=== PATIENT | male | born 1945 | race African-American/Black ===

== ENCOUNTER 2018-03-04 13:24 | Inpatient (IN) | payer MEDICARE, MEDICAID ==
--- NOTE | 2018-03-04 14:20 | ED Physician Chart ---
ED Chief Complaint/HPI - Patient Information Date Seen:: 03/04/18 Time Seen:: 14:00 Chief Complaint:: abdominal pain History of Present Illness:: Patient's had intermittent abdominal pain for 2 weeks. The last 2 weeks he has vomited about once a day and also had diarrhea about once a day. Patient's had bilateral leg swelling for the last 2 weeks. 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 He is legally blind. Allergies:: Allergies Allergy/AdvReac Type Severity Reaction Status Date / Time No Known Allergies Allergy Verified 03/04/18 14:01 Historian:: Family Member Review:: Nurse's Note Reviewed ED Review of Systems - Review of Systems General/Constitutional: No fever, No chills Skin: No skin lesions Head: No headache Eyes: No loss of vision ENT: No earache Neck: No neck pain Cardio Vascular: No chest pain, No palpitations Pulmonary: No SOB, No cough, No sputum GI: Vomiting, Diarrhea G/U: No dysuria Musculoskeletal: No bone or joint pain, No back pain, No muscle pain Endocrine: No polyuria, No polydipsia Psychiatric: No prior psych history Hematopoietic: No bruising Allergic/Immuno: No urticaria Neurological: No syncope ED Past Medical History - Past Medical History Past Medical History: HTN, DM, CHF, Other (see history of present illness also) Family History: Diabetes Melitus, HTN Social History: Non Smoker, Other (quit smoking 7 or 8 years ago; currently living in a motel) Surgical History: CABG, Hernia, other (three-vessel coronary artery bypass graft surgery; bowel obstruction; ventral hernia) Psychiatricy History: None Medication: Reviewed Family Medical History - Family Member Mother Ethnicity: Non- Living Status: Hx Family Hypertension: Yes Hx Family Diabetes: Yes ED Physical Exam - Physical Examination General/Constitutional: Awake, Well-developed, well-nourished, Alert, No distress Head: Atraumatic Eyes: Lids, conjuctiva normal Other Eyes comments:: Right eye deviates laterally Skin: Nl inspection, No rash ENMT: External ears, nose nl, Lips, teeth, gums nl Neck: No nuchal rigidity Respiratory: Nl effort/Exclusion, Clear to Auscultation, No Wheeze/Rhonchi/Rales Cardio Vascular: RRR Other Cardio Vascular comments:: Regular rhythm with a 4/6 systolic murmur heard equally along left sternal border and second right intercostal space GI: No tenderness/rebounding/guarding, No organomegaly, No hernia, Normal BS's, Nondistended, No mass/bruits : No CVA tenderness Extremities: Normal digits & nails Other Extremities comments:: 3.5 out of 4 pretibial pitting edema Neuro/Psych: Alert/oriented, No focal deficits ED Labs/Radiology/EKG Results - Lab Results Results: Laboratory Results - last 24 hr 03/04/18 03/04/18 03/04/18 14:00 14:00 14:00 WBC 5.6 RBC 3.95 Hgb 11.0 L Hct 33.4 L MCV 84.6 MCH 27.8 MCHC Differential 32.9 RDW 13.2 Plt Count 169 MPV 8.0 Neutrophils % 55.6 Lymphocytes % 34.1 Monocytes % 8.0 Eosinophils % 1.7 Basophils % 0.6 Sodium 140 Potassium 3.9 Chloride 108 H Carbon Dioxide 28.9 Anion Gap 7.0 BUN 16 Creatinine 0.9 Est GFR ( Amer) TNP Est GFR (Non-Af Amer) TNP BUN/Creatinine Ratio 17.8 Glucose 85 Calcium 9.1 Total Bilirubin 1.1 H AST 21 ALT 11 Alkaline Phosphatase 49 Troponin I B-Natriuretic Peptide 626.0 H Total Protein 6.5 Albumin 3.9 L Globulin 2.6 Albumin/Globulin Ratio 1.5 03/04/18 14:00 WBC RBC Hgb Hct MCV MCH MCHC Differential RDW Plt Count MPV Neutrophils % Lymphocytes % Monocytes % Eosinophils % Basophils % Sodium Potassium Chloride Carbon Dioxide Anion Gap BUN Creatinine Est GFR ( Amer) Est GFR (Non-Af Amer) BUN/Creatinine Ratio Glucose Calcium Total Bilirubin AST ALT Alkaline Phosphatase Troponin I 0.03 B-Natriuretic Peptide Total Protein Albumin Globulin Albumin/Globulin Ratio - Radiology Results Results: Chest x-ray showed cardiomegaly, calcification of the aortic arch and status post sternotomy - EKG Interpretations Rate & Rhythm: normal sinus rhythm with a rate of 75 Nelson: normal axis Comments:: Inferior lateral T-wave inversions ED Assessment - Assessment General Assessment: Based on age-adjusted BMP patient is not currently in congestive heart failure. He is also noted to have easy, unlabored respirations. ED Septic Shock - . Is Septic Shock (SBP<90, OR Lactate>4 mmol\L) present?: No ED Reassessment (Disposition) - Reassessment Reassessment Condition:: Unchanged - Diagnosis Diagnosis:: Anemia; gastroenteritis; peripheral edema - Patient Disposition Admitted to:: Med/Surg Spoke to:: Ryan Holden Admitting Medical Physician:: Ryan Holden Condition at Disposition:: Stable, Unchanged
[2018-03-04 14:30] LABS: % BASOPHILS 0.6 % (0.0-2.0); % EOSINOPHILS 1.7 % (0.0-5.0); % LYMPHOCYTES 34.1 % (20.0-50.0); % NEUTROPHILS 55.6 % (40.0-80.0); EOSINOPHILE ABSOLUTE 0.1 Th/cmm (0.1-0.4); HEMATOCRIT 33.4 % (41.0-60); LYMPHOCYTE ABSOLUTE 1.9 Th/cmm (1.5-3.0); MEAN CELL VOLUME 84.6 fl (80-99); MEAN CORPUSCULAR HEMOGLOBIN 27.8 pg (27.0-31.0); MEAN CORPUSCULAR HGB CONC 32.9 pg (28.0-36.0); MONOCYTE ABSOLUTE 0.4 Th/cmm (0.3-1.0); NEUTROPHILE ABSOLUTE 3.2 Th/cmm (1.8-8.0); PLATELET COUNT 169 Th/cmm (150-400); RED BLOOD COUNT 3.95 Mil/cmm (3.80-5.80); RED CELL DISTRIBUTION WIDTH 13.2 % (11.5-20.0); WHITE BLOOD COUNT 5.6 Th/cmm (4.8-10.8)
[2018-03-04 14:48] VITALS: BP 174/82
--- NOTE | 2018-03-04 14:50 | Diagnostic Imaging Report ---
CHEST X-RAY: AP view INDICATION: CHF COMPARISON: None FINDINGS: There is evidence of prior median sternotomy. Mild congestive changes are noted. No focal consolidation or effusions. Mild cardiomegaly is noted with atherosclerosis. Degenerative changes of the spine are noted. IMPRESSION: Mild congestive changes. No focal consolidation identified. Mild cardiomegaly with atherosclerosis. Evidence of prior median sternotomy.
[2018-03-04 15:06] LABS: ALB/GLOB RATIO 1.5 (1.0-1.8); ALBUMIN 3.9 gm/dL (4.2-5.5); ALKALINE PHOSPHATASE 49 U/L (34-104); BILIRUBIN,TOTAL 1.1 mg/dL (0.3-1.0); BUN - UREA NITROGEN 16 mg/dL (7-25); CALCIUM SERUM 9.1 mg/dL (8.6-10.3); CARBON DIOXIDE 28.9 mEq/L (21.0-31.0); CHLORIDE 108 mEq/L (98-107); CREATININE - SERUM 0.9 mg/dL (0.7-1.3); GLUCOSE 85 mg/dL (70-105); POTASSIUM SERUM 3.9 mEq/L (3.5-5.1); SGOT 21 U/L (13-39); SGPT/ALT 11 U/L (7-52); SODIUM SERUM 140 mEq/L (136-145); TOTAL PROTEIN,SERUM 6.5 gm/dL (6.0-8.3)
[2018-03-04 15:50] LABS: URINE MICROSCOPIC INDICATED? YES; URINE SOURCE RANDOM
[2018-03-04 15:52] LABS: URINE BILIRUBIN NEGATIVE (NEGATIVE); URINE BLOOD NEGATIVE (NEGATIVE); URINE GLUCOSE (UA) NEGATIVE (NEGATIVE); URINE KETONE NEGATIVE (NEGATIVE); URINE LEUKOCYTE ESTERASE NEGATIVE (NEGATIVE); URINE NITRATE NEGATIVE (NEGATIVE); URINE PH 7.5 (4.6 - 8.0); URINE PROTEIN TRACE mg/dL (NEGATIVE)
[2018-03-04 16:41] LABS: URINE CLARITY CLEAR (CLEAR); URINE COLOR YELLOW
[2018-03-04 16:42] LABS: URINE BACTERIA NONE SEEN /hpf (NONE SEEN); URINE EPITHELIAL CELLS RARE /lpf (FEW); URINE RBC 0-2 /hpf (0-5); URINE WBC 0-2 /hpf (0-5)
[2018-03-04] MEDS: INSULIN ASPART SLIDING SCALE 100 UNITS/ML UNIT SUBQ SCH (22:18)
[2018-03-05] MEDS: INSULIN ASPART SLIDING SCALE 100 UNITS/ML UNIT SUBQ SCH ×4 (06:50→20:56)
--- NOTE | 2018-03-05 11:53 | History and Physical ---
History of Present Illness - HPI Chief Complaint: abdominal pain , diarrhea, bilateral leg swelling HPI: This is a 72 year old male who has a 2 week history of intermittent abdomonal pain.Patient had x1 episode of vomiting and watery stool daily. History is unable to obtained at this time due to being deaf mute. No caregiver at bedside. All history obtained from ER notes. Vital Signs: Last Vital Signs Temp 97.7 F 03/05/18 07:48 Pulse 71 03/05/18 09:02 Resp 18 03/05/18 08:00 BP 173/75 03/05/18 09:02 Pulse Ox 99 03/05/18 07:48 Past Medical History Other History: HTN, DM, CHF, deaf, mute - Past Surgical History Past Surgical History: Other ( CABG, Hernia, three-vessel coronary artery bypass graft surgery; bowel obstruction; ventral hernia) Family Medical History - Family Member Mother History Unknown: Yes Ethnicity: Non- Living Status: Hx Family Hypertension: Yes Hx Family Diabetes: Yes Social History Smoke: Quit Alcohol: None Drugs: None Lives: Other (motel) - Medications Home Medications: Home Medication Medication Instructions Recorded Type NK [No Home Meds] 03/04/18 History - Allergies Allergies/Adverse Reactions: Allergies Allergy/AdvReac Type Severity Reaction Status Date / Time No Known Allergies Allergy Verified 03/04/18 14:01 Review of Systems - Review of Systems Constitutional: Report: No Significant Eyes: Report: No Significant Respiratory: Report: No Significant Cardiovascular: Report: No Significant Gastrointestinal: Report: Abdominal Pain Neurological: Report: No Significant Physical Exam - Physical Exam HEENT: Report: Ears Nose Throat within normal limits Neck: Report: Within normal limits Cardiovascular Systems: Report: +s1/s2 noted, Regular, Rate and Rhythm Respiratory: Report: Breath Sounds are within normal limits Abdomen: Report: Non-tender to palpation Skin: Report: Other (bilateral lower leg swelling) - Lab Results All Lab Results last 24 hours: Laboratory Results - last 24 hr 03/04/18 03/04/18 03/04/18 14:00 14:00 14:00 WBC 5.6 RBC 3.95 Hgb 11.0 L Hct 33.4 L MCV 84.6 MCH 27.8 MCHC Differential 32.9 RDW 13.2 Plt Count 169 MPV 8.0 Neutrophils % 55.6 Lymphocytes % 34.1 Monocytes % 8.0 Eosinophils % 1.7 Basophils % 0.6 Sodium 140 Potassium 3.9 Chloride 108 H Carbon Dioxide 28.9 Anion Gap 7.0 BUN 16 Creatinine 0.9 Est GFR ( Amer) TNP Est GFR (Non-Af Amer) TNP BUN/Creatinine Ratio 17.8 Glucose 85 POC Glucose Calcium 9.1 Total Bilirubin 1.1 H AST 21 ALT 11 Alkaline Phosphatase 49 Troponin I B-Natriuretic Peptide 626.0 H Total Protein 6.5 Albumin 3.9 L Globulin 2.6 Albumin/Globulin Ratio 1.5 Urine Source Urine Color Urine Clarity Urine pH Ur Specific [place] Urine Protein Urine Glucose (UA) Urine Ketones Urine Blood Urine Nitrate Urine Bilirubin Urine Urobilinogen Ur Leukocyte Esterase Urine RBC Urine WBC Ur Epithelial Cells Urine Bacteria 03/04/18 03/04/18 03/04/18 14:00 15:45 18:18 WBC RBC Hgb Hct MCV MCH MCHC Differential RDW Plt Count MPV Neutrophils % Lymphocytes % Monocytes % Eosinophils % Basophils % Sodium Potassium Chloride Carbon Dioxide Anion Gap BUN Creatinine Est GFR ( Amer) Est GFR (Non-Af Amer) BUN/Creatinine Ratio Glucose POC Glucose 89 Calcium Total Bilirubin AST ALT Alkaline Phosphatase Troponin I 0.03 B-Natriuretic Peptide Total Protein Albumin Globulin Albumin/Globulin Ratio Urine Source RANDOM Urine Color YELLOW Urine Clarity CLEAR Urine pH 7.5 Ur Specific [place] 1.020 Urine Protein TRACE Urine Glucose (UA) NEGATIVE Urine Ketones NEGATIVE Urine Blood NEGATIVE Urine Nitrate NEGATIVE Urine Bilirubin NEGATIVE Urine Urobilinogen 2.0 Ur Leukocyte Esterase NEGATIVE Urine RBC 0-2 H Urine WBC 0-2 Ur Epithelial Cells RARE Urine Bacteria NONE SEEN 03/04/18 03/05/18 21:50 06:40 WBC RBC Hgb Hct MCV MCH MCHC Differential RDW Plt Count MPV Neutrophils % Lymphocytes % Monocytes % Eosinophils % Basophils % Sodium Potassium Chloride Carbon Dioxide Anion Gap BUN Creatinine Est GFR ( Amer) Est GFR (Non-Af Amer) BUN/Creatinine Ratio Glucose POC Glucose 113 H 75 Calcium Total Bilirubin AST ALT Alkaline Phosphatase Troponin I B-Natriuretic Peptide Total Protein Albumin Globulin Albumin/Globulin Ratio Urine Source Urine Color Urine Clarity Urine pH Ur Specific [place] Urine Protein Urine Glucose (UA) Urine Ketones Urine Blood Urine Nitrate Urine Bilirubin Urine Urobilinogen Ur Leukocyte Esterase Urine RBC Urine WBC Ur Epithelial Cells Urine Bacteria - Assessment Assessment: Acute gastroenteritis Abdominal pain bilateral lower leg swelling Deaf/Mute Legally Blind CHF HTN - Plan Plan: iv flagyl stool cultures to be obtained consult gi bilateral lower leg venous doppler follow up labs in am continue current orders
[2018-03-05] MEDS: metroNIDAZOLE 500mg/NS 100mL 500 MG/100 ML BAG IV SCH ×2 (14:16→20:41)
--- NOTE | 2018-03-05 14:54 | Diagnostic Imaging Report ---
Bilateral lower extremity DVT study HISTORY: Pain, rule out DVT COMPARISON: None Technique: Longitudinal and transverse sonographic images of the bilateral lower extremity veins were obtained with doppler analysis. FINDINGS: There is normal compressibility, augmentation and phasicity of the bilateral common femoral, superficial femoral, popliteal, and posterior tibial veins. No thrombus is visualized. IMPRESSION: No evidence of thrombus within the bilateral lower extremity veins.
[2018-03-06] MEDS: metroNIDAZOLE 500mg/NS 100mL 500 MG/100 ML BAG IV SCH ×3 (04:10→21:28)
[2018-03-06 06:00] LABS: % BASOPHILS 0.8 % (0.0-2.0); % EOSINOPHILS 1.5 % (0.0-5.0); % MONOCYTES 7.6 % (2.0-10.0); % NEUTROPHILS 51.1 % (40.0-80.0); EOSINOPHILE ABSOLUTE 0.1 Th/cmm (0.1-0.4); HEMATOCRIT 32.8 % (41.0-60); HEMOGLOBIN 10.9 gm/dL (12-16); LYMPHOCYTE ABSOLUTE 1.8 Th/cmm (1.5-3.0); MEAN CELL VOLUME 84.1 fl (80-99); MEAN CORPUSCULAR HGB CONC 33.3 pg (28.0-36.0); MONOCYTE ABSOLUTE 0.4 Th/cmm (0.3-1.0); NEUTROPHILE ABSOLUTE 2.4 Th/cmm (1.8-8.0); PLATELET COUNT 156 Th/cmm (150-400); RED CELL DISTRIBUTION WIDTH 13.2 % (11.5-20.0); WHITE BLOOD COUNT 4.7 Th/cmm (4.8-10.8)
[2018-03-06 06:16] LABS: ANION GAP 8.6 (7.0-16.0); BUN - UREA NITROGEN 15 mg/dL (7-25); CARBON DIOXIDE 28.6 mEq/L (21.0-31.0); CHLORIDE 106 mEq/L (98-107); CREATININE - SERUM 0.9 mg/dL (0.7-1.3); GLUCOSE 115 mg/dL (70-105); POTASSIUM SERUM 4.2 mEq/L (3.5-5.1); SODIUM SERUM 139 mEq/L (136-145)
[2018-03-06] MEDS: INSULIN ASPART SLIDING SCALE 100 UNITS/ML UNIT SUBQ SCH ×4 (06:33→21:28)
[2018-03-06 07:35] LABS: ALB/GLOB RATIO 1.3 (1.0-1.8); ALBUMIN 3.4 gm/dL (4.2-5.5); ALKALINE PHOSPHATASE 43 U/L (34-104); SGOT 14 U/L (13-39); SGPT/ALT 8 U/L (7-52)
[2018-03-06 07:54] LABS: INR 1.05 (0.5-1.4); PROTHROMBIN TIME (TEST) 10.9 SECONDS (9.5-11.5)
--- NOTE | 2018-03-06 09:38 | General Progress Note ---
Subjective - Review of Systems Service Date: 03/06/18 Events since last encounter: consult dictated has reducible ventral hernia recommend repair when consent is given by daughter Objective - Results Result Diagrams: 03/06/18 05:30 03/06/18 05:30 Recent Labs: Laboratory Last Values WBC 4.7 Th/cmm (4.8-10.8) L 03/06/18 05:30 RBC 3.90 Mil/cmm (3.80-5.80) 03/06/18 05:30 Hgb 10.9 gm/dL (12-16) L 03/06/18 05:30 Hct 32.8 % (41.0-60) L 03/06/18 05:30 MCV 84.1 fl (80-99) 03/06/18 05:30 MCH 28.0 pg (27.0-31.0) 03/06/18 05:30 MCHC Differential 33.3 pg (28.0-36.0) 03/06/18 05:30 RDW 13.2 % (11.5-20.0) 03/06/18 05:30 Plt Count 156 Th/cmm (150-400) 03/06/18 05:30 MPV 8.0 fl 03/06/18 05:30 Neutrophils % 51.1 % (40.0-80.0) 03/06/18 05:30 Lymphocytes % 39.0 % (20.0-50.0) 03/06/18 05:30 Monocytes % 7.6 % (2.0-10.0) 03/06/18 05:30 Eosinophils % 1.5 % (0.0-5.0) 03/06/18 05:30 Basophils % 0.8 % (0.0-2.0) 03/06/18 05:30 PT 10.9 SECONDS (9.5-11.5) 03/06/18 07:31 INR 1.05 (0.5-1.4) 03/06/18 07:31 PTT (Actin FS) 25.6 SECONDS (26.0-38.0) L 03/06/18 07:31 Sodium 139 mEq/L (136-145) 03/06/18 05:30 Potassium 4.2 mEq/L (3.5-5.1) 03/06/18 05:30 Chloride 106 mEq/L (98-107) 03/06/18 05:30 Carbon Dioxide 28.6 mEq/L (21.0-31.0) 03/06/18 05:30 Anion Gap 8.6 (7.0-16.0) 03/06/18 05:30 BUN 15 mg/dL (7-25) 03/06/18 05:30 Creatinine 0.9 mg/dL (0.7-1.3) 03/06/18 05:30 Est GFR ( Amer) TNP 03/06/18 05:30 Est GFR (Non-Af Amer) TNP 03/06/18 05:30 BUN/Creatinine Ratio 16.7 03/06/18 05:30 Glucose 115 mg/dL (70-105) H 03/06/18 05:30 POC Glucose 90 MG/DL (70 - 105) 03/06/18 06:17 Calcium 9.0 mg/dL (8.6-10.3) 03/06/18 05:30 Magnesium 2.0 mg/dL (1.9-2.7) 03/06/18 05:30 Total Bilirubin 1.0 mg/dL (0.3-1.0) 03/06/18 05:30 AST 14 U/L (13-39) 03/06/18 05:30 ALT 8 U/L (7-52) 03/06/18 05:30 Alkaline Phosphatase 43 U/L (34-104) 03/06/18 05:30 Troponin I 0.03 ng/mL (0.01-0.05) 03/04/18 14:00 B-Natriuretic Peptide 626.0 pg/mL (5.0-100.0) H 03/04/18 14:00 Total Protein 6.0 gm/dL (6.0-8.3) 03/06/18 05:30 Albumin 3.4 gm/dL (4.2-5.5) L 03/06/18 05:30 Globulin 2.6 gm/dL 03/06/18 05:30 Albumin/Globulin Ratio 1.3 (1.0-1.8) 03/06/18 05:30 Urine Source RANDOM 03/04/18 15:45 Urine Color YELLOW 03/04/18 15:45 Urine Clarity CLEAR (CLEAR) 03/04/18 15:45 Urine pH 7.5 (4.6 - 8.0) 03/04/18 15:45 Ur Specific [place] 1.020 (1.005-1.030) 03/04/18 15:45 Urine Protein TRACE mg/dL (NEGATIVE) 03/04/18 15:45 Urine Glucose (UA) NEGATIVE mg/dL (NEGATIVE) 03/04/18 15:45 Urine Ketones NEGATIVE mg/dL (NEGATIVE) 03/04/18 15:45 Urine Blood NEGATIVE (NEGATIVE) 03/04/18 15:45 Urine Nitrate NEGATIVE (NEGATIVE) 03/04/18 15:45 Urine Bilirubin NEGATIVE (NEGATIVE) 03/04/18 15:45 Urine Urobilinogen 2.0 E.U./dL (0.2 - 1.0) 03/04/18 15:45 Ur Leukocyte Esterase NEGATIVE (NEGATIVE) 03/04/18 15:45 Urine RBC 0-2 /hpf (0-5) H 03/04/18 15:45 Urine WBC 0-2 /hpf (0-5) 03/04/18 15:45 Ur Epithelial Cells RARE /lpf (FEW) 03/04/18 15:45 Urine Bacteria NONE SEEN /hpf (NONE SEEN) 03/04/18 15:45 - Physical Exam Vitals and I&O: Vital Signs Temp 96.1 F 03/06/18 07:40 Pulse 63 03/06/18 07:40 Resp 18 03/06/18 07:40 BP 150/79 03/06/18 07:40 Pulse Ox 100 03/06/18 07:40 Intake & Output 03/05/18 03/06/18 03/06/18 18:59 06:59 18:59 Intake Total 600 200 Balance 600 200 Weight (lbs) 73.936 kg 73.936 kg Intake: Intake, IV Amount 100 200 metroNIDAZOLE 500mg/NS 100 200 100mL 500 mg In 100 ml @ 100 mls/hr IV Q8HR [facility] Rx #:[id number] Oral 500 Other: # Voids 3 Weight Source Bedscale Bedscale Active Medications: Current Medications Metronidazole (Flagyl) 500 mg in 100 mls @ 100 mls/hr IV Q8HR [facility] Stop: 05/04/18 12:59 Last Infusion: 03/06/18 05:10 Dose: Infused Dextrose/Sodium Chloride (D5-0.9%Ns) 1,000 mls @ 100 mls/hr IV .Q10H [facility] Stop: 05/05/18 07:29 Insulin Aspart (Novolog Insulin Sliding Scale) 0 units SUBQ ACHS [facility]; Protocol Stop: 05/03/18 20:59 Last Admin: 03/06/18 06:33 Dose: Not Given Ondansetron HCl (Zofran) 4 mg IV Q6H PRN PRN Reason: Nausea / Vomiting Stop: 05/03/18 20:29 Nutritional Asmnt/Malnutr-PDOC - Dietary Evaluation Malnutrition Findings (Please click <Entered> for more info): Nutritional Asmnt/Malnutrition Start: 03/05/18 14: 10 Text: Status: Complete Freq: Protocol: Document 03/05/18 14:10 EMA (Rec: 03/05/18 14:27 EMA [email or web address]) Nutritional Asmnt/Malnutrition Patient General Information Nutritional Screening High Risk Diagnosis gastroenteritis, anemia, FTT Pertinent Medical Hx/Surgical Hx HTN, DM, CHF, CABG, hernia, bowel obstruction Subjective Information Per H&P, pt had vomiting and diarrhea for 2 weeks before admitted. Pt is deaf noted. Family at bed side at time of visit. Per family, pt has no N /V today. Current Diet Order/ Nutrition Support CCHO 60gm Pertinent Medications novolog, flagyl, zofran Pertinent Labs 03/04 Cl 108, glucose 85, POC 89 -113 03/05 POC 75-123 Nutritional Hx/Data Height 1.57 m Height (Calculated Centimeters) 157.5 Current Weight (lbs) 73.936 kg Weight (Calculated Kilograms) 73.9 Weight (Calculated Grams) 64434.6 [place] Body Weight 118 Body Mass Index (BMI) 29.8 Weight Status Overweight GI Symptoms GI Symptoms None Last BM not indicated Difficult in: None Usual diet at home per family pt eats regular textured diet and tolerates well Skin Integrity/Comment: 2+ pitting edema to right and left lower extremities Estimated Nutritional Goals BEE in Kcals: Adj wt of IBW Calories/Kcals/Kg 25-30 Kcals Calculated 6561-4287 Protein: Adj wt of IBW Protein g/k-1.2 Protein Calculated 58-70 Fluid: ml 1450-1740ml (1ml/kcal) Nutritional Problem No current Nutrition Prob Problem N/A Malnutrition Alert Is there a minimum of two criteria No selected? Query Text:Check all the applicable criteria. A minimum of two criteria are recommended for diagnosis of either severe or non-severe malnutrition. Malnutrition Related to Morbid Obesity Malnutrition related to morbid obesity No Intervention/Recommendation Comments 1. Continue with CCHO-60gm diet as ordered. If glucose continue WNL, recomend regular diet for liberalization. 2. Monitor PO intake, wt, labs and skin integrity 3. F/U as high risk in 2-3 days, 03/07-03/08 Expected Outcomes/Goals Expected Outcomes/Goals 1. PO intake to meet at least 75% of nutritional needs. 2. Wt stability, skin to remain intact, labs to approach WNL.
[2018-03-06] MEDS: D5-0.9%NS 1,000 ML IV SCH ×2 (09:47→16:35)
--- NOTE | 2018-03-06 09:55 | Diagnostic Imaging Report ---
CT abdomen and pelvis without intravenous contrast Indication: Abdominal pain Comparison: None, Technique: Axial images were obtained from the lung bases to the bilateral proximal femurs without IV contrast. Coronal reconstructions were made. total DLP: 347, CTDI6.8 FINDINGS: Hypoventilatory atelectatic changes of the lung bases are seen with trace right and small right effusion and right basal [place] atelectatic and consolidative changes. Mildly prominent heart is noted. Exam is limited due to motion and lack of IV and oral contrast. No evidence of focal hepatic lesions. The patient status post cholecystectomy. No focal splenic lesions. Limited assessment of the pancreas demonstrate no focal lesions. No focal adrenal lesions. No evidence hydronephrosis or focal renal lesions. 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 There is a narrow based ventral hernia to the right of midline at the level of the umbilicus containing a bowel loop. Dilated loops of bowel are seen including small bowel loops. Copious stool is seen throughout the colon. No evidence of appendicitis. No evidence of free abdominal air anasarca is noted. Degenerative changes of the spine are noted. IMPRESSION: Narrow based ventral hernia to the right of midline at the level of the umbilicus containing a bowel loop which appears to be a small bowel loop. Dilated loops of small bowel are noted proximally. There is probable partial small bowel obstruction as a result of this heart. 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 There is aneurysmal dilatation is region measuring up to 3 cm. Additional areas of aneurysmal dilatation are seen within the proximal right common iliac artery measuring up to 2.[address] angiography would provide additional detail assessment of these findings. Evidence of prior cholecystectomy. Trace left and small right effusion or right basal opacity atelectatic and consolidative changes Mild anasarca.
--- NOTE | 2018-03-06 09:58 | General Progress Note ---
Subjective - Review of Systems Service Date: 03/06/18 Events since last encounter: discussed extensively risk status of patient who had coronary stent unsuccessfully attempted at [facility] last year 4 vessel bypass in year 1999 small bowel obstruction with resection in year 2006 CT today shows ventral hernia with partial SBO PE reducible hernia labs ok Plan: elective hernia repair, patient in mild CHF, Cardiology consult daughter understands risks with and without surgery Objective - Results Result Diagrams: 03/06/18 05:30 03/06/18 05:30 Recent Labs: Laboratory Last Values WBC 4.7 Th/cmm (4.8-10.8) L 03/06/18 05:30 RBC 3.90 Mil/cmm (3.80-5.80) 03/06/18 05:30 Hgb 10.9 gm/dL (12-16) L 03/06/18 05:30 Hct 32.8 % (41.0-60) L 03/06/18 05:30 MCV 84.1 fl (80-99) 03/06/18 05:30 MCH 28.0 pg (27.0-31.0) 03/06/18 05:30 MCHC Differential 33.3 pg (28.0-36.0) 03/06/18 05:30 RDW 13.2 % (11.5-20.0) 03/06/18 05:30 Plt Count 156 Th/cmm (150-400) 03/06/18 05:30 MPV 8.0 fl 03/06/18 05:30 Neutrophils % 51.1 % (40.0-80.0) 03/06/18 05:30 Lymphocytes % 39.0 % (20.0-50.0) 03/06/18 05:30 Monocytes % 7.6 % (2.0-10.0) 03/06/18 05:30 Eosinophils % 1.5 % (0.0-5.0) 03/06/18 05:30 Basophils % 0.8 % (0.0-2.0) 03/06/18 05:30 PT 10.9 SECONDS (9.5-11.5) 03/06/18 07:31 INR 1.05 (0.5-1.4) 03/06/18 07:31 PTT (Actin FS) 25.6 SECONDS (26.0-38.0) L 03/06/18 07:31 Sodium 139 mEq/L (136-145) 03/06/18 05:30 Potassium 4.2 mEq/L (3.5-5.1) 03/06/18 05:30 Chloride 106 mEq/L (98-107) 03/06/18 05:30 Carbon Dioxide 28.6 mEq/L (21.0-31.0) 03/06/18 05:30 Anion Gap 8.6 (7.0-16.0) 03/06/18 05:30 BUN 15 mg/dL (7-25) 03/06/18 05:30 Creatinine 0.9 mg/dL (0.7-1.3) 03/06/18 05:30 Est GFR ( Amer) TNP 03/06/18 05:30 Est GFR (Non-Af Amer) TNP 03/06/18 05:30 BUN/Creatinine Ratio 16.7 03/06/18 05:30 Glucose 115 mg/dL (70-105) H 03/06/18 05:30 POC Glucose 90 MG/DL (70 - 105) 03/06/18 06:17 Calcium 9.0 mg/dL (8.6-10.3) 03/06/18 05:30 Magnesium 2.0 mg/dL (1.9-2.7) 03/06/18 05:30 Total Bilirubin 1.0 mg/dL (0.3-1.0) 03/06/18 05:30 AST 14 U/L (13-39) 03/06/18 05:30 ALT 8 U/L (7-52) 03/06/18 05:30 Alkaline Phosphatase 43 U/L (34-104) 03/06/18 05:30 Troponin I 0.03 ng/mL (0.01-0.05) 03/04/18 14:00 B-Natriuretic Peptide 626.0 pg/mL (5.0-100.0) H 03/04/18 14:00 Total Protein 6.0 gm/dL (6.0-8.3) 03/06/18 05:30 Albumin 3.4 gm/dL (4.2-5.5) L 03/06/18 05:30 Globulin 2.6 gm/dL 03/06/18 05:30 Albumin/Globulin Ratio 1.3 (1.0-1.8) 03/06/18 05:30 Urine Source RANDOM 03/04/18 15:45 Urine Color YELLOW 03/04/18 15:45 Urine Clarity CLEAR (CLEAR) 03/04/18 15:45 Urine pH 7.5 (4.6 - 8.0) 03/04/18 15:45 Ur Specific [place] 1.020 (1.005-1.030) 03/04/18 15:45 Urine Protein TRACE mg/dL (NEGATIVE) 03/04/18 15:45 Urine Glucose (UA) NEGATIVE mg/dL (NEGATIVE) 03/04/18 15:45 Urine Ketones NEGATIVE mg/dL (NEGATIVE) 03/04/18 15:45 Urine Blood NEGATIVE (NEGATIVE) 03/04/18 15:45 Urine Nitrate NEGATIVE (NEGATIVE) 03/04/18 15:45 Urine Bilirubin NEGATIVE (NEGATIVE) 03/04/18 15:45 Urine Urobilinogen 2.0 E.U./dL (0.2 - 1.0) 03/04/18 15:45 Ur Leukocyte Esterase NEGATIVE (NEGATIVE) 03/04/18 15:45 Urine RBC 0-2 /hpf (0-5) H 03/04/18 15:45 Urine WBC 0-2 /hpf (0-5) 03/04/18 15:45 Ur Epithelial Cells RARE /lpf (FEW) 03/04/18 15:45 Urine Bacteria NONE SEEN /hpf (NONE SEEN) 03/04/18 15:45 - Physical Exam Vitals and I&O: Vital Signs Temp 96.1 F 03/06/18 07:40 Pulse 63 03/06/18 07:40 Resp 18 03/06/18 07:40 BP 150/79 03/06/18 07:40 Pulse Ox 100 03/06/18 07:40 Intake & Output 03/05/18 03/06/18 03/06/18 18:59 06:59 18:59 Intake Total 600 200 Balance 600 200 Weight (lbs) 73.936 kg 73.936 kg Intake: Intake, IV Amount 100 200 metroNIDAZOLE 500mg/NS 100 200 100mL 500 mg In 100 ml @ 100 mls/hr IV Q8HR [facility] Rx #:[id number] Oral 500 Other: # Voids 3 Weight Source Bedscale Bedscale Active Medications: Current Medications Metronidazole (Flagyl) 500 mg in 100 mls @ 100 mls/hr IV Q8HR [facility] Stop: 05/04/18 12:59 Last Infusion: 03/06/18 05:10 Dose: Infused Dextrose/Sodium Chloride (D5-0.9%Ns) 1,000 mls @ 100 mls/hr IV .Q10H [facility] Stop: 05/05/18 07:29 Last Admin: 03/06/18 09:47 Dose: 100 mls/hr Insulin Aspart (Novolog Insulin Sliding Scale) 0 units SUBQ ACHS [facility]; Protocol Stop: 05/03/18 20:59 Last Admin: 03/06/18 06:33 Dose: Not Given Ondansetron HCl (Zofran) 4 mg IV Q6H PRN PRN Reason: Nausea / Vomiting Stop: 05/03/18 20:29 Nutritional Asmnt/Malnutr-PDOC - Dietary Evaluation Malnutrition Findings (Please click <Entered> for more info): Nutritional Asmnt/Malnutrition Start: 03/05/18 14: 10 Text: Status: Complete Freq: Protocol: Document 03/05/18 14:10 [email or web address] (Rec: 03/05/18 14:27 [email or web address] [email or web address]) Nutritional Asmnt/Malnutrition Patient General Information Nutritional Screening High Risk Diagnosis gastroenteritis, anemia, FTT Pertinent Medical Hx/Surgical Hx HTN, DM, CHF, CABG, hernia, bowel obstruction Subjective Information Per H&P, pt had vomiting and diarrhea for 2 weeks before admitted. Pt is deaf noted. Family at bed side at time of visit. Per family, pt has no N /V today. Current Diet Order/ Nutrition Support CCHO 60gm Pertinent Medications novolog, flagyl, zofran Pertinent Labs 03/04 Cl 108, glucose 85, POC 89 -113 03/05 POC 75-123 Nutritional Hx/Data Height 1.57 m Height (Calculated Centimeters) 157.5 Current Weight (lbs) 73.936 kg Weight (Calculated Kilograms) 73.9 Weight (Calculated Grams) 61301.6 [place] Body Weight 118 Body Mass Index (BMI) 29.8 Weight Status Overweight GI Symptoms GI Symptoms None Last BM not indicated Difficult in: None Usual diet at home per family pt eats regular textured diet and tolerates well Skin Integrity/Comment: 2+ pitting edema to right and left lower extremities Estimated Nutritional Goals BEE in Kcals: Adj wt of IBW Calories/Kcals/Kg 25-30 Kcals Calculated 1350-1179 Protein: Adj wt of IBW Protein g/k-1.2 Protein Calculated 58-70 Fluid: ml 1450-1740ml (1ml/kcal) Nutritional Problem No current Nutrition Prob Problem N/A Malnutrition Alert Is there a minimum of two criteria No selected? Query Text:Check all the applicable criteria. A minimum of two criteria are recommended for diagnosis of either severe or non-severe malnutrition. Malnutrition Related to Morbid Obesity Malnutrition related to morbid obesity No Intervention/Recommendation Comments 1. Continue with CCHO-60gm diet as ordered. If glucose continue WNL, recomend regular diet for liberalization. 2. Monitor PO intake, wt, labs and skin integrity 3. F/U as high risk in 2-3 days, 03/07-03/08 Expected Outcomes/Goals Expected Outcomes/Goals 1. PO intake to meet at least 75% of nutritional needs. 2. Wt stability, skin to remain intact, labs to approach WNL.
--- NOTE | 2018-03-06 17:40 | Progress Notes ---
DATE: 03/06/2018 SUBJECTIVE: The patient was seen in his room, lying in the bed. The patient is asleep, but easily arousable. Otherwise, the patient appears to be in no acute distress. OBJECTIVE: VITAL SIGNS: Temperature 97, heart rate 71, respiration of 18, blood pressure 165/99, 100% on room air. HEENT: Head is atraumatic and normocephalic. Eyes: Bilateral conjunctivae are clear. Bilateral pupils are equally round and reactive. NECK: Supple. No JVD. CARDIOVASCULAR: S1 and S2, without murmur. PULMONARY: Clear to auscultation. GASTROINTESTINAL: Soft and nontender without guarding. Positive bowel sounds. MUSCULOSKELETAL: Bilateral lower extremity edema +2. ASSESSMENT: 1. Abdominal pain. 2. Abdominal hernia as confirmed by CT scan. 3. Hypertension. 4. Congestive heart failure. PLAN: I will continue current antibiotics. We are also going to consult with the surgeon for abdominal hernia evaluation. Bilateral lower extremity Doppler was negative for DVT. We will elevate the legs. Treatment plans were discussed with the patient's nurse. Treatment plans were discussed with Dr. Holden. JOB# [id number]
--- NOTE | 2018-03-06 21:14 | Consultation ---
DATE OF CONSULTATION: 03/06/2018 SURGICAL CONSULTATION REFERRING PHYSICIAN: Eliza Holden MD REASON FOR CONSULTATION: Abdominal pain. Thank you for referring this patient to me. 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 Apparently, he was brought in by daughter to the Emergency Room because of abdominal pain and vomiting. Documentation is strictly on the basis of what is in the chart as the daughter could not be reached by phone by nursing personnel as voicemail is full. LABORATORY STUDIES: Show the CBC to be normal, WBC of 4.7, hemoglobin of 10.9. PT and PTT are normal. Blood sugar 115, rest are normal except for bilirubin slightly high at 1.1. The BNP on admission was 626. There is swelling of the legs and there is previous scar in the abdomen at the midline, etiology of this is unknown. The chest x-ray shows mild congestive heart failure, mild cardiomegaly and evidence of prior median sternotomy. Cardiac surgery for reason? A CT scan of the abdomen showed narrow based ventral hernia with bowel herniation causing partial small bowel obstruction. PHYSICAL EXAMINATION: Now, there is midline sternotomy and midline abdominal incision with a hernia just above the umbilicus. There is no tenderness present and hernia is reducible. RECOMMENDATION: Because of the potential of strangulation, this should be repaired. There is no emergency now in the presence of minimal pain and reducibility of the hernia. We will contact the daughter as soon as possible and schedule for surgery on an elective basis. Thank you Dr. Davis. JOB# [id number]
--- NOTE | 2018-03-06 22:45 | Consultation ---
DATE OF CONSULTATION: 03/06/2018 INPATIENT GASTROINTESTINAL CONSULT REFERRING PHYSICIAN: Dr. Holden. REASON FOR CONSULTATION: Abdominal pain, small-bowel obstruction. HISTORY OF PRESENT ILLNESS: A 72-year-old male has been having 2 weeks of intermittent abdominal pain associated with nausea and vomiting and loose stools. 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 PAST MEDICAL HISTORY: Include coronary artery disease, ventral hernia. PAST SURGICAL HISTORY: CABG and hernia repair. FAMILY HISTORY: Noncontributory. SOCIAL HISTORY: Resident of [facility]. ALLERGIES: None. CURRENT MEDICATIONS: Normal saline, insulin, Flagyl, Zofran. REVIEW OF SYSTEMS: Ten point review of system was unobtainable. PHYSICAL EXAMINATION: VITAL SIGNS: Temperature 96.1, breathing 18, pulse is 63, blood pressure is 150/79, satting 100%. GENERAL: In no apparent distress. EYES: Anicteric. Normal conjunctivae. HEENT: Normocephalic, atraumatic. Moist mucous membranes. NECK: Soft, supple. CHEST: Clear. No effort. CARDIOVASCULAR: Regular rate and rhythm. ABDOMEN: Soft, mildly distended, nontender, old scars. SKIN: Warm, dry. EXTREMITIES: Reveal no cyanosis. PSYCHOLOGICAL: Awake. LABORATORY DATA: Show white count 4.7, hemoglobin 10.9, platelets of 156. INR is 1.05. Total bilirubin 1, AST 14, ALT 8, alkaline phosphatase 43, creatinine 0.9. Preliminary CT scan showed a small narrowed ventral hernia with bowel herniation into it causing partial small-bowel obstruction and also dilated loops of bowel, status post cholecystectomy changes. IMPRESSION: A 72-year-old male with abdominal pain secondary to small bowel obstructions, the root of the problem is from the ventral hernia with bowel herniations and this will likely need surgery to repair. PLAN: 1. Surgical consult per primary doctor, hospitalist to address the small-bowel obstruction. 2. Continue supportive care. 3. Continue antibiotics. 4. The patient n.p.o. 5. IV fluids. Thank you for allowing me to participate. Please call me if any questions. JOB# [id number]
[2018-03-07] MEDS: D5-0.9%NS 1,000 ML IV SCH ×2 (05:59→17:52)
[2018-03-07] MEDS: metroNIDAZOLE 500mg/NS 100mL 500 MG/100 ML BAG IV SCH ×3 (05:59→21:11)
[2018-03-07] MEDS: INSULIN ASPART SLIDING SCALE 100 UNITS/ML UNIT SUBQ SCH ×4 (06:38→21:10)
[2018-03-07 07:27] LABS: ANION GAP 9.6 (7.0-16.0); BUN - UREA NITROGEN 8 mg/dL (7-25); CALCIUM SERUM 9.4 mg/dL (8.6-10.3); CARBON DIOXIDE 27.2 mEq/L (21.0-31.0); CHLORIDE 108 mEq/L (98-107); CHOLESTEROL 175 mg/dL (<200); CREATININE - SERUM 0.9 mg/dL (0.7-1.3); GLUCOSE 107 mg/dL (70-105); HDL -HIGH DENSITY LIPOPROTEIN 42 mg/dL (23-92); POTASSIUM SERUM 3.8 mEq/L (3.5-5.1); SODIUM SERUM 141 mEq/L (136-145); TRIGLYCERIDES 76 mg/dL (<150)
--- NOTE | 2018-03-07 08:45 | GI Progress Note ---
Subjective - Review of Systems Subjective: NO EVENTS Objective - Results Result Diagrams: 03/06/18 05:30 03/07/18 06:36 Recent Labs: Laboratory Last Values WBC 4.7 Th/cmm (4.8-10.8) L 03/06/18 05:30 RBC 3.90 Mil/cmm (3.80-5.80) 03/06/18 05:30 Hgb 10.9 gm/dL (12-16) L 03/06/18 05:30 Hct 32.8 % (41.0-60) L 03/06/18 05:30 MCV 84.1 fl (80-99) 03/06/18 05:30 MCH 28.0 pg (27.0-31.0) 03/06/18 05:30 MCHC Differential 33.3 pg (28.0-36.0) 03/06/18 05:30 RDW 13.2 % (11.5-20.0) 03/06/18 05:30 Plt Count 156 Th/cmm (150-400) 03/06/18 05:30 MPV 8.0 fl 03/06/18 05:30 Neutrophils % 51.1 % (40.0-80.0) 03/06/18 05:30 Lymphocytes % 39.0 % (20.0-50.0) 03/06/18 05:30 Monocytes % 7.6 % (2.0-10.0) 03/06/18 05:30 Eosinophils % 1.5 % (0.0-5.0) 03/06/18 05:30 Basophils % 0.8 % (0.0-2.0) 03/06/18 05:30 PT 10.9 SECONDS (9.5-11.5) 03/06/18 07:31 INR 1.05 (0.5-1.4) 03/06/18 07:31 PTT (Actin FS) 25.6 SECONDS (26.0-38.0) L 03/06/18 07:31 Sodium 141 mEq/L (136-145) 03/07/18 06:36 Potassium 3.8 mEq/L (3.5-5.1) 03/07/18 06:36 Chloride 108 mEq/L (98-107) H 03/07/18 06:36 Carbon Dioxide 27.2 mEq/L (21.0-31.0) 03/07/18 06:36 Anion Gap 9.6 (7.0-16.0) 03/07/18 06:36 BUN 8 mg/dL (7-25) 03/07/18 06:36 Creatinine 0.9 mg/dL (0.7-1.3) 03/07/18 06:36 Est GFR ( Amer) TNP 03/07/18 06:36 Est GFR (Non-Af Amer) TNP 03/07/18 06:36 BUN/Creatinine Ratio 8.9 03/07/18 06:36 Glucose 107 mg/dL (70-105) H 03/07/18 06:36 POC Glucose 83 MG/DL (70 - 105) 03/07/18 05:57 Calcium 9.4 mg/dL (8.6-10.3) 03/07/18 06:36 Magnesium 2.0 mg/dL (1.9-2.7) 03/06/18 05:30 Total Bilirubin 1.0 mg/dL (0.3-1.0) 03/06/18 05:30 AST 14 U/L (13-39) 03/06/18 05:30 ALT 8 U/L (7-52) 03/06/18 05:30 Alkaline Phosphatase 43 U/L (34-104) 03/06/18 05:30 Troponin I 0.03 ng/mL (0.01-0.05) 03/04/18 14:00 B-Natriuretic Peptide 898.0 pg/mL (5.0-100.0) H 03/07/18 06:36 Total Protein 6.0 gm/dL (6.0-8.3) 03/06/18 05:30 Albumin 3.4 gm/dL (4.2-5.5) L 03/06/18 05:30 Globulin 2.6 gm/dL 03/06/18 05:30 Albumin/Globulin Ratio 1.3 (1.0-1.8) 03/06/18 05:30 Triglycerides 76 mg/dL (<150) 03/07/18 06:36 Cholesterol 175 mg/dL (<200) 03/07/18 06:36 LDL Cholesterol Direct 113 mg/dL (75-193) 03/07/18 06:36 HDL Cholesterol 42 mg/dL (23-92) 03/07/18 06:36 Urine Source RANDOM 03/04/18 15:45 Urine Color YELLOW 03/04/18 15:45 Urine Clarity CLEAR (CLEAR) 03/04/18 15:45 Urine pH 7.5 (4.6 - 8.0) 03/04/18 15:45 Ur Specific [place] 1.020 (1.005-1.030) 03/04/18 15:45 Urine Protein TRACE mg/dL (NEGATIVE) 03/04/18 15:45 Urine Glucose (UA) NEGATIVE mg/dL (NEGATIVE) 03/04/18 15:45 Urine Ketones NEGATIVE mg/dL (NEGATIVE) 03/04/18 15:45 Urine Blood NEGATIVE (NEGATIVE) 03/04/18 15:45 Urine Nitrate NEGATIVE (NEGATIVE) 03/04/18 15:45 Urine Bilirubin NEGATIVE (NEGATIVE) 03/04/18 15:45 Urine Urobilinogen 2.0 E.U./dL (0.2 - 1.0) 03/04/18 15:45 Ur Leukocyte Esterase NEGATIVE (NEGATIVE) 03/04/18 15:45 Urine RBC 0-2 /hpf (0-5) H 03/04/18 15:45 Urine WBC 0-2 /hpf (0-5) 03/04/18 15:45 Ur Epithelial Cells RARE /lpf (FEW) 03/04/18 15:45 Urine Bacteria NONE SEEN /hpf (NONE SEEN) 03/04/18 15:45 - Physical Exam Vitals and I&O: Vital Signs Temp 97.4 F 03/07/18 07:51 Pulse 65 03/07/18 07:51 Resp 18 03/07/18 08:00 BP 194/105 03/07/18 07:51 Pulse Ox 97 03/07/18 07:51 Intake & Output 03/06/18 03/07/18 03/07/18 18:59 06:59 18:59 Intake Total 780 1100 50 Output Total 500 Balance 780 1100 -450 Weight (lbs) 73.936 kg 72.484 kg Intake: Intake, IV Amount 780 1100 D5-0.9%Ns 1,000 ml @ 988 225 5092 mls/hr IV .Q10H [facility] Rx#: [id number] metroNIDAZOLE 500mg/NS 100 100 100mL 500 mg In 100 ml @ 100 mls/hr IV Q8HR [facility] Rx #:[id number] Oral 0 50 Output: Urine 500 Other: # Voids 3 # Bowel Movements 1 Weight Source Bedscale Bedscale Active Medications: Current Medications Brimonidine Tartrate (Alphagan 0.1% Ophth Soln) 1 drop EACH EYE TID [facility] Stop: 05/06/18 08:59 Dorzolamide HCl (Trusopt 2% Ophth Soln) 1 drop EACH EYE TID [facility] Stop: 05/06/18 08:59 Enalaprilat (Vasotec) 1.25 mg IVP Q6H PRN PRN Reason: FOR SBP>170 [facility] Stop: 05/06/18 05:43 Last Admin: 03/07/18 05:00 Dose: 1.25 mg Metronidazole (Flagyl) 500 mg in 100 mls @ 100 mls/hr IV Q8HR [facility] Stop: 05/04/18 12:59 Last Admin: 03/07/18 05:59 Dose: 100 mls/hr Dextrose/Sodium Chloride (D5-0.9%Ns) 1,000 mls @ 100 mls/hr IV .Q10H [facility] Stop: 05/05/18 07:29 Last Admin: 03/07/18 05:59 Dose: 100 mls/hr Insulin Aspart (Novolog Insulin Sliding Scale) 0 units SUBQ ACHS [facility]; Protocol Stop: 05/03/18 20:59 Last Admin: 03/07/18 06:38 Dose: Not Given Latanoprost (Xalatan 0.005% Ophth Soln) 1 drop EACH EYE HS [facility] Stop: 05/06/18 20:59 Ondansetron HCl (Zofran) 4 mg IV Q6H PRN PRN Reason: Nausea / Vomiting Stop: 05/03/18 20:29 Temazepam (Restoril) 15 mg PO HS PRN; Protocol PRN Reason: Insomnia Stop: 05/05/18 23:15 Last Admin: 03/06/18 23:27 Dose: 15 mg Assessment/Plan - Assessment Assessment: 72 YO MALE WITH SBO DUE TO HERNIA LIMITED GI OPTIONS 1.NEEDS SURGERY 2.CONT SUPP CARE 3.SURGERY INPUT
--- NOTE | 2018-03-07 08:58 | General Progress Note ---
Subjective - Review of Systems Service Date: 03/07/18 Events since last encounter: await cardiology clearance for surgery consent signed by daughter yesterday Objective - Results Result Diagrams: 03/06/18 05:30 03/07/18 06:36 Recent Labs: Laboratory Last Values WBC 4.7 Th/cmm (4.8-10.8) L 03/06/18 05:30 RBC 3.90 Mil/cmm (3.80-5.80) 03/06/18 05:30 Hgb 10.9 gm/dL (12-16) L 03/06/18 05:30 Hct 32.8 % (41.0-60) L 03/06/18 05:30 MCV 84.1 fl (80-99) 03/06/18 05:30 MCH 28.0 pg (27.0-31.0) 03/06/18 05:30 MCHC Differential 33.3 pg (28.0-36.0) 03/06/18 05:30 RDW 13.2 % (11.5-20.0) 03/06/18 05:30 Plt Count 156 Th/cmm (150-400) 03/06/18 05:30 MPV 8.0 fl 03/06/18 05:30 Neutrophils % 51.1 % (40.0-80.0) 03/06/18 05:30 Lymphocytes % 39.0 % (20.0-50.0) 03/06/18 05:30 Monocytes % 7.6 % (2.0-10.0) 03/06/18 05:30 Eosinophils % 1.5 % (0.0-5.0) 03/06/18 05:30 Basophils % 0.8 % (0.0-2.0) 03/06/18 05:30 PT 10.9 SECONDS (9.5-11.5) 03/06/18 07:31 INR 1.05 (0.5-1.4) 03/06/18 07:31 PTT (Actin FS) 25.6 SECONDS (26.0-38.0) L 03/06/18 07:31 Sodium 141 mEq/L (136-145) 03/07/18 06:36 Potassium 3.8 mEq/L (3.5-5.1) 03/07/18 06:36 Chloride 108 mEq/L (98-107) H 03/07/18 06:36 Carbon Dioxide 27.2 mEq/L (21.0-31.0) 03/07/18 06:36 Anion Gap 9.6 (7.0-16.0) 03/07/18 06:36 BUN 8 mg/dL (7-25) 03/07/18 06:36 Creatinine 0.9 mg/dL (0.7-1.3) 03/07/18 06:36 Est GFR ( Amer) TNP 03/07/18 06:36 Est GFR (Non-Af Amer) TNP 03/07/18 06:36 BUN/Creatinine Ratio 8.9 03/07/18 06:36 Glucose 107 mg/dL (70-105) H 03/07/18 06:36 POC Glucose 83 MG/DL (70 - 105) 03/07/18 05:57 Calcium 9.4 mg/dL (8.6-10.3) 03/07/18 06:36 Magnesium 2.0 mg/dL (1.9-2.7) 03/06/18 05:30 Total Bilirubin 1.0 mg/dL (0.3-1.0) 03/06/18 05:30 AST 14 U/L (13-39) 03/06/18 05:30 ALT 8 U/L (7-52) 03/06/18 05:30 Alkaline Phosphatase 43 U/L (34-104) 03/06/18 05:30 Troponin I 0.03 ng/mL (0.01-0.05) 03/04/18 14:00 B-Natriuretic Peptide 898.0 pg/mL (5.0-100.0) H 03/07/18 06:36 Total Protein 6.0 gm/dL (6.0-8.3) 03/06/18 05:30 Albumin 3.4 gm/dL (4.2-5.5) L 03/06/18 05:30 Globulin 2.6 gm/dL 03/06/18 05:30 Albumin/Globulin Ratio 1.3 (1.0-1.8) 03/06/18 05:30 Triglycerides 76 mg/dL (<150) 03/07/18 06:36 Cholesterol 175 mg/dL (<200) 03/07/18 06:36 LDL Cholesterol Direct 113 mg/dL (75-193) 03/07/18 06:36 HDL Cholesterol 42 mg/dL (23-92) 03/07/18 06:36 TSH 3.13 uIU/ml (0.34-5.60) 03/07/18 06:36 Urine Source RANDOM 03/04/18 15:45 Urine Color YELLOW 03/04/18 15:45 Urine Clarity CLEAR (CLEAR) 03/04/18 15:45 Urine pH 7.5 (4.6 - 8.0) 03/04/18 15:45 Ur Specific [place] 1.020 (1.005-1.030) 03/04/18 15:45 Urine Protein TRACE mg/dL (NEGATIVE) 03/04/18 15:45 Urine Glucose (UA) NEGATIVE mg/dL (NEGATIVE) 03/04/18 15:45 Urine Ketones NEGATIVE mg/dL (NEGATIVE) 03/04/18 15:45 Urine Blood NEGATIVE (NEGATIVE) 03/04/18 15:45 Urine Nitrate NEGATIVE (NEGATIVE) 03/04/18 15:45 Urine Bilirubin NEGATIVE (NEGATIVE) 03/04/18 15:45 Urine Urobilinogen 2.0 E.U./dL (0.2 - 1.0) 03/04/18 15:45 Ur Leukocyte Esterase NEGATIVE (NEGATIVE) 03/04/18 15:45 Urine RBC 0-2 /hpf (0-5) H 03/04/18 15:45 Urine WBC 0-2 /hpf (0-5) 03/04/18 15:45 Ur Epithelial Cells RARE /lpf (FEW) 03/04/18 15:45 Urine Bacteria NONE SEEN /hpf (NONE SEEN) 03/04/18 15:45 - Physical Exam Vitals and I&O: Vital Signs Temp 97.4 F 03/07/18 07:51 Pulse 65 03/07/18 07:51 Resp 18 03/07/18 08:00 BP 194/105 03/07/18 07:51 Pulse Ox 97 03/07/18 07:51 Intake & Output 03/06/18 03/07/18 03/07/18 18:59 06:59 18:59 Intake Total 780 1100 50 Output Total 500 Balance 780 1100 -450 Weight (lbs) 73.936 kg 72.484 kg Intake: Intake, IV Amount 780 1100 D5-0.9%Ns 1,000 ml @ 429 532 9470 mls/hr IV .Q10H [facility] Rx#: [id number] metroNIDAZOLE 500mg/NS 100 100 100mL 500 mg In 100 ml @ 100 mls/hr IV Q8HR [facility] Rx #:[id number] Oral 0 50 Output: Urine 500 Other: # Voids 3 # Bowel Movements 1 Weight Source Bedscale Bedscale Active Medications: Current Medications Brimonidine Tartrate (Alphagan 0.1% Ophth Soln) 1 drop EACH EYE TID [facility] Stop: 05/06/18 08:59 Dorzolamide HCl (Trusopt 2% Ophth Soln) 1 drop EACH EYE TID [facility] Stop: 05/06/18 08:59 Enalaprilat (Vasotec) 1.25 mg IVP Q6H PRN PRN Reason: FOR SBP>170 [facility] Stop: 05/06/18 05:43 Last Admin: 03/07/18 05:00 Dose: 1.25 mg Metronidazole (Flagyl) 500 mg in 100 mls @ 100 mls/hr IV Q8HR [facility] Stop: 05/04/18 12:59 Last Admin: 03/07/18 05:59 Dose: 100 mls/hr Dextrose/Sodium Chloride (D5-0.9%Ns) 1,000 mls @ 100 mls/hr IV .Q10H [facility] Stop: 05/05/18 07:29 Last Admin: 03/07/18 05:59 Dose: 100 mls/hr Insulin Aspart (Novolog Insulin Sliding Scale) 0 units SUBQ ACHS [facility]; Protocol Stop: 05/03/18 20:59 Last Admin: 03/07/18 06:38 Dose: Not Given Latanoprost (Xalatan 0.005% Ophth Soln) 1 drop EACH EYE HS [facility] Stop: 05/06/18 20:59 Ondansetron HCl (Zofran) 4 mg IV Q6H PRN PRN Reason: Nausea / Vomiting Stop: 05/03/18 20:29 Temazepam (Restoril) 15 mg PO HS PRN; Protocol PRN Reason: Insomnia Stop: 05/05/18 23:15 Last Admin: 03/06/18 23:27 Dose: 15 mg Nutritional Asmnt/Malnutr-PDOC - Dietary Evaluation Malnutrition Findings (Please click <Entered> for more info): Nutritional Asmnt/Malnutrition Start: 03/05/18 14: 10 Text: Status: Complete Freq: Protocol: Document 03/05/18 14:10 EMA (Rec: 03/05/18 14:27 [email or web address] [email or web address]) Nutritional Asmnt/Malnutrition Patient General Information Nutritional Screening High Risk Diagnosis gastroenteritis, anemia, FTT Pertinent Medical Hx/Surgical Hx HTN, DM, CHF, CABG, hernia, bowel obstruction Subjective Information Per H&P, pt had vomiting and diarrhea for 2 weeks before admitted. Pt is deaf noted. Family at bed side at time of visit. Per family, pt has no N /V today. Current Diet Order/ Nutrition Support CCHO 60gm Pertinent Medications novolog, flagyl, zofran Pertinent Labs 03/04 Cl 108, glucose 85, POC 89 -113 03/05 POC 75-123 Nutritional Hx/Data Height 1.57 m Height (Calculated Centimeters) 157.5 Current Weight (lbs) 73.936 kg Weight (Calculated Kilograms) 73.9 Weight (Calculated Grams) 68517.6 [place] Body Weight 118 Body Mass Index (BMI) 29.8 Weight Status Overweight GI Symptoms GI Symptoms None Last BM not indicated Difficult in: None Usual diet at home per family pt eats regular textured diet and tolerates well Skin Integrity/Comment: 2+ pitting edema to right and left lower extremities Estimated Nutritional Goals BEE in Kcals: Adj wt of IBW Calories/Kcals/Kg 25-30 Kcals Calculated 7046-7850 Protein: Adj wt of IBW Protein g/k-1.2 Protein Calculated 58-70 Fluid: ml 1450-1740ml (1ml/kcal) Nutritional Problem No current Nutrition Prob Problem N/A Malnutrition Alert Is there a minimum of two criteria No selected? Query Text:Check all the applicable criteria. A minimum of two criteria are recommended for diagnosis of either severe or non-severe malnutrition. Malnutrition Related to Morbid Obesity Malnutrition related to morbid obesity No Intervention/Recommendation Comments 1. Continue with CCHO-60gm diet as ordered. If glucose continue WNL, recomend regular diet for liberalization. 2. Monitor PO intake, wt, labs and skin integrity 3. F/U as high risk in 2-3 days, 03/07-03/08 Expected Outcomes/Goals Expected Outcomes/Goals 1. PO intake to meet at least 75% of nutritional needs. 2. Wt stability, skin to remain intact, labs to approach WNL.
--- NOTE | 2018-03-07 09:51 | Consultation ---
DATE OF CONSULTATION: 03/06/2018 HISTORY OF PRESENT ILLNESS: This 72-year-old male was seen and examined. The patient is deaf and mute. No history available from the patient. Some information obtained from the chart. The patient was admitted here with a 2-week history of intermittent abdominal pain, some diarrhea and some vomiting. The patient does have history of coronary artery disease status post coronary artery bypass surgery in 1999, history of congestive heart failure, cardiomegaly, history of hypertension, and diabetes mellitus. The patient is deaf and mute, legally blind. The patient has ventral hernia. The patient has had a small-bowel obstruction in 2006. LABORATORY AND DIAGNOSTIC DATA: Reviewing the lab: Protime was 10.9, INR was 1.05, PTT 25.6, WBC 5.6, hemoglobin 11.0, hematocrit 33.4, and platelet count 169. Sodium 139, potassium 4.2, chloride 106, carbon dioxide 28.6, BUN 15, creatinine 0.9, glucose 115, calcium 9.0, magnesium 2.0, total bilirubin 1.0, AST 8, ALT 43, alkaline phosphatase 43. Chest x-ray showed mild congestive changes, no focal consolidation, mild cardiomegaly, and atherosclerosis. PAST MEDICAL HISTORY: As mentioned above. FAMILY HISTORY: Not available from the patient. SOCIAL HISTORY: Not available from the patient. REVIEW OF SYSTEMS: Not available from the patient. PHYSICAL EXAMINATION: VITAL SIGNS: Heart rate was 65, blood pressure 162/88. SKIN: Normal. HEAD: Normocephalic. EYES: Conjunctivae were pink. There is no icterus in the eyes. Pupils reacting to light. NECK: There was no increased jugular venous distention, no thyromegaly, and no lymphadenopathy. Carotids equal both sides. CHEST: Bilaterally symmetrical, moved well with respiration. Respiratory movements equal both sides. Trachea is central. There is note to percussion. Breath sounds, few basilar rales. CARDIOVASCULAR SYSTEM: PMI not well localized and no pulsation or thrill. No parasternal heave. S1 normal. S2 physiologic. There were no S3, no rub. ABDOMEN: Soft, slightly distended. Bowel sounds are present. EXTREMITIES: No calf tenderness. Peripheral pulses diminished. IMPRESSION: Abdominal pain, vomiting, diarrhea, ventral hernia, coronary artery disease status post coronary artery bypass surgery in the year 1999, history of congestive heart failure, cardiomegaly, hypertension, uncontrolled diabetes mellitus. The patient is deaf, mute and legally blind. The patient is status post small-bowel obstruction in 2006, suggest to continue present management on professor of [employer] studies with repeat EKG. EKG showed sinus rhythm, LVH, possible left atrial enlargement, so repeat the EKG. Also get echocardiogram to evaluate left ventricular function and valvular structure. Also get lipid profile, TSH, BNP and BMP. The patient is n.p.o. right now. So for the blood pressure, we will order Vasotec 1.25 mg IV q.6 p.r.n., Catapres already has been ordered. When the patient's n.p.o. status is removed, the patient should be on beta karen, statins, TONY inhibitor, and aspirin. Further recommendation will be made depending on the rest of the tests available. JOB# [id number]
--- NOTE | 2018-03-07 10:55 | General Progress Note ---
Subjective - Review of Systems Service Date: 03/07/18 Subjective: awake and alert denies pain easily agitated Objective - Results Result Diagrams: 03/06/18 05:30 03/07/18 06:36 Recent Labs: Laboratory Last Values WBC 4.7 Th/cmm (4.8-10.8) L 03/06/18 05:30 RBC 3.90 Mil/cmm (3.80-5.80) 03/06/18 05:30 Hgb 10.9 gm/dL (12-16) L 03/06/18 05:30 Hct 32.8 % (41.0-60) L 03/06/18 05:30 MCV 84.1 fl (80-99) 03/06/18 05:30 MCH 28.0 pg (27.0-31.0) 03/06/18 05:30 MCHC Differential 33.3 pg (28.0-36.0) 03/06/18 05:30 RDW 13.2 % (11.5-20.0) 03/06/18 05:30 Plt Count 156 Th/cmm (150-400) 03/06/18 05:30 MPV 8.0 fl 03/06/18 05:30 Neutrophils % 51.1 % (40.0-80.0) 03/06/18 05:30 Lymphocytes % 39.0 % (20.0-50.0) 03/06/18 05:30 Monocytes % 7.6 % (2.0-10.0) 03/06/18 05:30 Eosinophils % 1.5 % (0.0-5.0) 03/06/18 05:30 Basophils % 0.8 % (0.0-2.0) 03/06/18 05:30 PT 10.9 SECONDS (9.5-11.5) 03/06/18 07:31 INR 1.05 (0.5-1.4) 03/06/18 07:31 PTT (Actin FS) 25.6 SECONDS (26.0-38.0) L 03/06/18 07:31 Sodium 141 mEq/L (136-145) 03/07/18 06:36 Potassium 3.8 mEq/L (3.5-5.1) 03/07/18 06:36 Chloride 108 mEq/L (98-107) H 03/07/18 06:36 Carbon Dioxide 27.2 mEq/L (21.0-31.0) 03/07/18 06:36 Anion Gap 9.6 (7.0-16.0) 03/07/18 06:36 BUN 8 mg/dL (7-25) 03/07/18 06:36 Creatinine 0.9 mg/dL (0.7-1.3) 03/07/18 06:36 Est GFR ( Amer) TNP 03/07/18 06:36 Est GFR (Non-Af Amer) TNP 03/07/18 06:36 BUN/Creatinine Ratio 8.9 03/07/18 06:36 Glucose 107 mg/dL (70-105) H 03/07/18 06:36 POC Glucose 83 MG/DL (70 - 105) 03/07/18 05:57 Calcium 9.4 mg/dL (8.6-10.3) 03/07/18 06:36 Magnesium 2.0 mg/dL (1.9-2.7) 03/06/18 05:30 Total Bilirubin 1.0 mg/dL (0.3-1.0) 03/06/18 05:30 AST 14 U/L (13-39) 03/06/18 05:30 ALT 8 U/L (7-52) 03/06/18 05:30 Alkaline Phosphatase 43 U/L (34-104) 03/06/18 05:30 Troponin I 0.03 ng/mL (0.01-0.05) 03/04/18 14:00 B-Natriuretic Peptide 898.0 pg/mL (5.0-100.0) H 03/07/18 06:36 Total Protein 6.0 gm/dL (6.0-8.3) 03/06/18 05:30 Albumin 3.4 gm/dL (4.2-5.5) L 03/06/18 05:30 Globulin 2.6 gm/dL 03/06/18 05:30 Albumin/Globulin Ratio 1.3 (1.0-1.8) 03/06/18 05:30 Triglycerides 76 mg/dL (<150) 03/07/18 06:36 Cholesterol 175 mg/dL (<200) 03/07/18 06:36 LDL Cholesterol Direct 113 mg/dL (75-193) 03/07/18 06:36 HDL Cholesterol 42 mg/dL (23-92) 03/07/18 06:36 TSH 3.13 uIU/ml (0.34-5.60) 03/07/18 06:36 Urine Source RANDOM 03/04/18 15:45 Urine Color YELLOW 03/04/18 15:45 Urine Clarity CLEAR (CLEAR) 03/04/18 15:45 Urine pH 7.5 (4.6 - 8.0) 03/04/18 15:45 Ur Specific [place] 1.020 (1.005-1.030) 03/04/18 15:45 Urine Protein TRACE mg/dL (NEGATIVE) 03/04/18 15:45 Urine Glucose (UA) NEGATIVE mg/dL (NEGATIVE) 03/04/18 15:45 Urine Ketones NEGATIVE mg/dL (NEGATIVE) 03/04/18 15:45 Urine Blood NEGATIVE (NEGATIVE) 03/04/18 15:45 Urine Nitrate NEGATIVE (NEGATIVE) 03/04/18 15:45 Urine Bilirubin NEGATIVE (NEGATIVE) 03/04/18 15:45 Urine Urobilinogen 2.0 E.U./dL (0.2 - 1.0) 03/04/18 15:45 Ur Leukocyte Esterase NEGATIVE (NEGATIVE) 03/04/18 15:45 Urine RBC 0-2 /hpf (0-5) H 03/04/18 15:45 Urine WBC 0-2 /hpf (0-5) 03/04/18 15:45 Ur Epithelial Cells RARE /lpf (FEW) 03/04/18 15:45 Urine Bacteria NONE SEEN /hpf (NONE SEEN) 03/04/18 15:45 - Physical Exam Vitals and I&O: Vital Signs Temp 97.4 F 03/07/18 07:51 Pulse 65 03/07/18 07:51 Resp 18 03/07/18 08:00 BP 194/105 03/07/18 07:51 Pulse Ox 97 03/07/18 07:51 Intake & Output 03/06/18 03/07/18 03/07/18 18:59 06:59 18:59 Intake Total 780 1100 50 Output Total 500 Balance 780 1100 -450 Weight (lbs) 73.936 kg 72.484 kg Intake: Intake, IV Amount 780 1100 D5-0.9%Ns 1,000 ml @ 921 832 7461 mls/hr IV .Q10H [facility] Rx#: [id number] metroNIDAZOLE 500mg/NS 100 100 100mL 500 mg In 100 ml @ 100 mls/hr IV Q8HR [facility] Rx #:[id number] Oral 0 50 Output: Urine 500 Other: # Voids 3 # Bowel Movements 1 Weight Source Bedscale Bedscale Active Medications: Current Medications Brimonidine Tartrate (Alphagan 0.1% Ophth Soln) 1 drop EACH EYE TID [facility] Stop: 05/06/18 08:59 Last Admin: 03/07/18 10:03 Dose: 1 drop Dorzolamide HCl (Trusopt 2% Ophth Soln) 1 drop EACH EYE TID [facility] Stop: 05/06/18 08:59 Last Admin: 03/07/18 10:02 Dose: 1 drop Enalaprilat (Vasotec) 1.25 mg IVP Q6H PRN PRN Reason: FOR SBP>170 [facility] Stop: 05/06/18 05:43 Last Admin: 03/07/18 05:00 Dose: 1.25 mg Metronidazole (Flagyl) 500 mg in 100 mls @ 100 mls/hr IV Q8HR [facility] Stop: 05/04/18 12:59 Last Admin: 03/07/18 05:59 Dose: 100 mls/hr Dextrose/Sodium Chloride (D5-0.9%Ns) 1,000 mls @ 100 mls/hr IV .Q10H [facility] Stop: 05/05/18 07:29 Last Admin: 03/07/18 05:59 Dose: 100 mls/hr Insulin Aspart (Novolog Insulin Sliding Scale) 0 units SUBQ ACHS [facility]; Protocol Stop: 05/03/18 20:59 Last Admin: 03/07/18 06:38 Dose: Not Given Latanoprost (Xalatan 0.005% Ophth Soln) 1 drop EACH EYE HS [facility] Stop: 05/06/18 20:59 Ondansetron HCl (Zofran) 4 mg IV Q6H PRN PRN Reason: Nausea / Vomiting Stop: 05/03/18 20:29 Temazepam (Restoril) 15 mg PO HS PRN; Protocol PRN Reason: Insomnia Stop: 05/05/18 23:15 Last Admin: 03/06/18 23:27 Dose: 15 mg General: Alert, Mild distress, no No acute distress HEENT: Atraumatic Neck: Supple Cardiovascular: Regular rate, Normal S1, Normal S2 Abdomen: Bowel sounds Assessment/Plan - Assessment Assessment: abdominal pain hypertension congestive heart failure - Plan Plan: cpm Nutritional Asmnt/Malnutr-PDOC - Dietary Evaluation Malnutrition Findings (Please click <Entered> for more info): Nutritional Asmnt/Malnutrition Start: 03/05/18 14: 10 Text: Status: Complete Freq: Protocol: Document 03/05/18 14:10 BRENDA (Rec: 03/05/18 14:27 [email or web address]) Nutritional Asmnt/Malnutrition Patient General Information Nutritional Screening High Risk Diagnosis gastroenteritis, anemia, FTT Pertinent Medical Hx/Surgical Hx HTN, DM, CHF, CABG, hernia, bowel obstruction Subjective Information Per H&P, pt had vomiting and diarrhea for 2 weeks before admitted. Pt is deaf noted. Family at bed side at time of visit. Per family, pt has no N /V today. Current Diet Order/ Nutrition Support [facility] 60 Pertinent Medications novolog, flagyl, zofran Pertinent Labs 03/04 Cl 108, glucose 85, POC 89 -113 03/05 POC 75-123 Nutritional Hx/Data Height 1.57 m Height (Calculated Centimeters) 157.5 Current Weight (lbs) 73.936 kg Weight (Calculated Kilograms) 73.9 Weight (Calculated Grams) 60334.6 [place] Body Weight 118 Body Mass Index (BMI) 29.8 Weight Status Overweight GI Symptoms GI Symptoms None Last BM not indicated Difficult in: None Usual diet at home per family pt eats regular textured diet and tolerates well Skin Integrity/Comment: 2+ pitting edema to right and left lower extremities Estimated Nutritional Goals BEE in Kcals: Adj wt of IBW Calories/Kcals/Kg 25-30 Kcals Calculated 2584-3586 Protein: Adj wt of IBW Protein g/k-1.2 Protein Calculated 58-70 Fluid: ml 1450-1740ml (1ml/kcal) Nutritional Problem No current Nutrition Prob Problem N/A Malnutrition Alert Is there a minimum of two criteria No selected? Query Text:Check all the applicable criteria. A minimum of two criteria are recommended for diagnosis of either severe or non-severe malnutrition. Malnutrition Related to Morbid Obesity Malnutrition related to morbid obesity No Intervention/Recommendation Comments 1. Continue with [facility]-60gm diet as ordered. If glucose continue WNL, recomend regular diet for liberalization. 2. Monitor PO intake, wt, labs and skin integrity 3. F/U as high risk in 2-3 days, 03/07-03/08 Expected Outcomes/Goals Expected Outcomes/Goals 1. PO intake to meet at least 75% of nutritional needs. 2. Wt stability, skin to remain intact, labs to approach WNL.
[2018-03-08] MEDS: metroNIDAZOLE 500mg/NS 100mL 500 MG/100 ML BAG IV SCH ×3 (04:05→22:28)
[2018-03-08] MEDS: INSULIN ASPART SLIDING SCALE 100 UNITS/ML UNIT SUBQ SCH ×4 (06:31→23:00)
[2018-03-08] MEDS ORDERED: Venelex 60gm Tube TP ONE (07:32)
[2018-03-08] MEDS ORDERED: Bupivacaine 0.25% 10 mL Vial ONE (07:33)
[2018-03-08] MEDS ORDERED: fentaNYL Citrate 100 mcg/2mL Vial ONE (07:44)
[2018-03-08] MEDS ORDERED: Propofol **SURGERY USE ONLY** 20 ML IV ONE (08:02)
[2018-03-08] MEDS ORDERED: Neostigmine 10mg/10mL Vial ONE (08:03)
[2018-03-08] MEDS ORDERED: Meperidine 25 mg/mL 1mL Syr ONE (09:48)
--- NOTE | 2018-03-08 10:30 | Operative Report ---
DATE OF SURGERY: 03/08/2018 PREOPERATIVE DIAGNOSES: 1. Incarcerated recurrent ventral hernia. 2. Deaf, mute. 3. History of congestive heart failure. POSTOPERATIVE DIAGNOSES: 1. Incarcerated recurrent ventral hernia. 2. Deaf, mute. 3. History of congestive heart failure. OPERATION DONE: Exploratory laparotomy with, 1. Lysis of dense adhesions. 2. Repair of incarcerated recurrent umbilical hernia with imbrication method. SURGEON: Michael Davis MD PRE K LEAD TEACHER: Dr. Bro. ANESTHESIA: General anesthesia. ANESTHESIOLOGIST: Dr. Sharma. ESTIMATED BLOOD LOSS: 10 mL. OPERATIVE FINDINGS: The hernia involved most of the incision. The colon was densely adhered to the hernia and this was lysed sharply and trapped back into the abdominal cavity. Because of the very thin habitus of the patient, imbrication of the right side of the fascia over the left side was done without placement of mesh. PROCEDURE: The patient was given general anesthesia. The abdomen was prepped with Betadine and draped in appropriate manner. An incision was made through the old scar deep into the fascia and the hernia, which involved the superior aspect of the umbilicus and farther up in the superior portion was exposed. The peritoneum was opened and adhesions were lysed bluntly and sharply until the whole incision was freed of the adhesions mostly the colon. The fascia was then exposed on each side. The repair was carried out by approximating the left side of the fascia under the right side utilizing running suture of #1 nylon. Following completion of this layer, the right side of the fascia was then sutured over the left side utilizing again running suture of 0 nylon. Following satisfactory hemostasis, the incision was closed with a running suture of 3-0 Vicryl subcutaneously and the skin was closed with running suture of 4-0 nylon. A sterile dressing was placed over this. The patient tolerated the procedure well. JOB# [id number]
--- NOTE | 2018-03-08 15:16 | General Progress Note ---
Subjective - Review of Systems Service Date: 03/08/18 Subjective: awake and alert easily agitated denies cp Objective - Results Result Diagrams: 03/06/18 05:30 03/07/18 06:36 Recent Labs: Laboratory Last Values WBC 4.7 Th/cmm (4.8-10.8) L 03/06/18 05:30 RBC 3.90 Mil/cmm (3.80-5.80) 03/06/18 05:30 Hgb 10.9 gm/dL (12-16) L 03/06/18 05:30 Hct 32.8 % (41.0-60) L 03/06/18 05:30 MCV 84.1 fl (80-99) 03/06/18 05:30 MCH 28.0 pg (27.0-31.0) 03/06/18 05:30 MCHC Differential 33.3 pg (28.0-36.0) 03/06/18 05:30 RDW 13.2 % (11.5-20.0) 03/06/18 05:30 Plt Count 156 Th/cmm (150-400) 03/06/18 05:30 MPV 8.0 fl 03/06/18 05:30 Neutrophils % 51.1 % (40.0-80.0) 03/06/18 05:30 Lymphocytes % 39.0 % (20.0-50.0) 03/06/18 05:30 Monocytes % 7.6 % (2.0-10.0) 03/06/18 05:30 Eosinophils % 1.5 % (0.0-5.0) 03/06/18 05:30 Basophils % 0.8 % (0.0-2.0) 03/06/18 05:30 PT 10.9 SECONDS (9.5-11.5) 03/06/18 07:31 INR 1.05 (0.5-1.4) 03/06/18 07:31 PTT (Actin FS) 25.6 SECONDS (26.0-38.0) L 03/06/18 07:31 Sodium 141 mEq/L (136-145) 03/07/18 06:36 Potassium 3.8 mEq/L (3.5-5.1) 03/07/18 06:36 Chloride 108 mEq/L (98-107) H 03/07/18 06:36 Carbon Dioxide 27.2 mEq/L (21.0-31.0) 03/07/18 06:36 Anion Gap 9.6 (7.0-16.0) 03/07/18 06:36 BUN 8 mg/dL (7-25) 03/07/18 06:36 Creatinine 0.9 mg/dL (0.7-1.3) 03/07/18 06:36 Est GFR ( Amer) TNP 03/07/18 06:36 Est GFR (Non-Af Amer) TNP 03/07/18 06:36 BUN/Creatinine Ratio 8.9 03/07/18 06:36 Glucose 107 mg/dL (70-105) H 03/07/18 06:36 POC Glucose 163 MG/DL (70 - 105) H 03/08/18 11:48 Calcium 9.4 mg/dL (8.6-10.3) 03/07/18 06:36 Magnesium 2.0 mg/dL (1.9-2.7) 03/06/18 05:30 Total Bilirubin 1.0 mg/dL (0.3-1.0) 03/06/18 05:30 AST 14 U/L (13-39) 03/06/18 05:30 ALT 8 U/L (7-52) 03/06/18 05:30 Alkaline Phosphatase 43 U/L (34-104) 03/06/18 05:30 Troponin I 0.03 ng/mL (0.01-0.05) 03/04/18 14:00 B-Natriuretic Peptide 719.0 pg/mL (5.0-100.0) H 03/08/18 05:40 Total Protein 6.0 gm/dL (6.0-8.3) 03/06/18 05:30 Albumin 3.4 gm/dL (4.2-5.5) L 03/06/18 05:30 Globulin 2.6 gm/dL 03/06/18 05:30 Albumin/Globulin Ratio 1.3 (1.0-1.8) 03/06/18 05:30 Triglycerides 76 mg/dL (<150) 03/07/18 06:36 Cholesterol 175 mg/dL (<200) 03/07/18 06:36 LDL Cholesterol Direct 113 mg/dL (75-193) 03/07/18 06:36 HDL Cholesterol 42 mg/dL (23-92) 03/07/18 06:36 TSH 3.13 uIU/ml (0.34-5.60) 03/07/18 06:36 Urine Source RANDOM 03/04/18 15:45 Urine Color YELLOW 03/04/18 15:45 Urine Clarity CLEAR (CLEAR) 03/04/18 15:45 Urine pH 7.5 (4.6 - 8.0) 03/04/18 15:45 Ur Specific [place] 1.020 (1.005-1.030) 03/04/18 15:45 Urine Protein TRACE mg/dL (NEGATIVE) 03/04/18 15:45 Urine Glucose (UA) NEGATIVE mg/dL (NEGATIVE) 03/04/18 15:45 Urine Ketones NEGATIVE mg/dL (NEGATIVE) 03/04/18 15:45 Urine Blood NEGATIVE (NEGATIVE) 03/04/18 15:45 Urine Nitrate NEGATIVE (NEGATIVE) 03/04/18 15:45 Urine Bilirubin NEGATIVE (NEGATIVE) 03/04/18 15:45 Urine Urobilinogen 2.0 E.U./dL (0.2 - 1.0) 03/04/18 15:45 Ur Leukocyte Esterase NEGATIVE (NEGATIVE) 03/04/18 15:45 Urine RBC 0-2 /hpf (0-5) H 03/04/18 15:45 Urine WBC 0-2 /hpf (0-5) 03/04/18 15:45 Ur Epithelial Cells RARE /lpf (FEW) 03/04/18 15:45 Urine Bacteria NONE SEEN /hpf (NONE SEEN) 03/04/18 15:45 - Physical Exam Vitals and I&O: Vital Signs Temp 98.0 F 03/08/18 12:04 Pulse 74 03/08/18 12:04 Resp 17 03/08/18 12:04 BP 207/119 03/08/18 12:04 Pulse Ox 99 03/08/18 12:04 Intake & Output 03/07/18 03/08/18 03/08/18 18:59 06:59 18:59 Intake Total 1550 200 Output Total 500 3200 Balance 1050 -3000 Weight (lbs) 72.121 kg 71.668 kg Intake: Intake, IV Amount 1100 200 D5-0.9%Ns 1,000 ml @ 100 1000 mls/hr IV .Q10H [facility] Rx#: [id number] metroNIDAZOLE 500mg/NS 100 200 100mL 500 mg In 100 ml @ 100 mls/hr IV Q8HR [facility] Rx #:[id number] Oral 450 Output: Urine 500 3200 Other: # Voids 900 # Bowel Movements 1 Weight Source Bedscale Bedscale Active Medications: Current Medications Brimonidine Tartrate (Alphagan 0.1% Ophth Soln) 1 drop EACH EYE TID [facility] Stop: 05/06/18 08:59 Last Admin: 03/08/18 14:01 Dose: Not Given Dorzolamide HCl (Trusopt 2% Ophth Soln) 1 drop EACH EYE TID [facility] Stop: 05/06/18 08:59 Last Admin: 03/08/18 14:01 Dose: Not Given Enalaprilat (Vasotec) 1.25 mg IVP Q6H PRN PRN Reason: FOR SBP>170 [facility] Stop: 05/06/18 05:43 Last Admin: 03/08/18 06:33 Dose: 1.25 mg Metronidazole (Flagyl) 500 mg in 100 mls @ 100 mls/hr IV Q8HR [facility] Stop: 05/04/18 12:59 Last Admin: 03/08/18 14:02 Dose: 100 mls/hr Dextrose/Sodium Chloride (D5-0.9%Ns) 1,000 mls @ 100 mls/hr IV .Q10H [facility] Stop: 05/05/18 07:29 Last Admin: 03/07/18 17:52 Dose: 100 mls/hr Insulin Aspart (Novolog Insulin Sliding Scale) 0 units SUBQ ACHS [facility]; Protocol Stop: 05/03/18 20:59 Last Admin: 03/08/18 12:45 Dose: Not Given Ketorolac Tromethamine (Toradol) 15 mg IVP Q6H PRN PRN Reason: Pain Stop: 05/07/18 09:39 Last Admin: 03/08/18 11:08 Dose: 15 mg Latanoprost (Xalatan 0.005% Ophth Soln) 1 drop EACH EYE HS [facility] Stop: 05/06/18 20:59 Last Admin: 03/07/18 21:10 Dose: 1 drop Ondansetron HCl (Zofran) 4 mg IV Q6H PRN PRN Reason: Nausea / Vomiting Stop: 05/03/18 20:29 Temazepam (Restoril) 15 mg PO HS PRN; Protocol PRN Reason: Insomnia Stop: 05/05/18 23:15 Last Admin: 03/06/18 23:27 Dose: 15 mg General: Alert, Mild distress, no No acute distress HEENT: Atraumatic Neck: Supple Cardiovascular: Regular rate, Normal S1, Normal S2 Abdomen: Bowel sounds - Procedures Procedures: Procedures Procedure Code Date INTRODUCE ADHESION BARRIER IN PERITON CAV, OPEN [id number] 03/04/18 RELEASE OMENTUM, OPEN APPROACH [id number] 03/04/18 SUPPLEMENT ABDOMINAL WALL WITH SYNTH SUB, OPEN APPROACH [id number] 03/04/18 Assessment/Plan - Assessment Assessment: abdominal pain hypertension congestive heart failure - Plan Plan: cpm Nutritional Asmnt/Malnutr-PDOC - Dietary Evaluation Malnutrition Findings (Please click <Entered> for more info): Nutritional Asmnt/Malnutrition Start: 03/05/18 14: 10 Text: Status: Complete Freq: Protocol: Document 03/05/18 14:10 LCHENG (Rec: 03/05/18 14:27 [email or web address] [email or web address]) Nutritional Asmnt/Malnutrition Patient General Information Nutritional Screening High Risk Diagnosis gastroenteritis, anemia, FTT Pertinent Medical Hx/Surgical Hx HTN, DM, CHF, CABG, hernia, bowel obstruction Subjective Information Per H&P, pt had vomiting and diarrhea for 2 weeks before admitted. Pt is deaf noted. Family at bed side at time of visit. Per family, pt has no N /V today. Current Diet Order/ [facility] Pertinent Medications novolog, flagyl, zofran Pertinent Labs 03/04 Cl 108, glucose 85, POC 89 -113 03/05 POC 75-123 Nutritional Hx/Data Height 1.57 m Height (Calculated Centimeters) 157.5 Current Weight (lbs) 73.936 kg Weight (Calculated Kilograms) 73.9 Weight (Calculated Grams) 92446.6 [place] Body Weight 118 Body Mass Index (BMI) 29.8 Weight Status Overweight GI Symptoms GI Symptoms None Last BM not indicated Difficult in: None Usual diet at home per family pt eats regular textured diet and tolerates well Skin Integrity/Comment: 2+ pitting edema to right and left lower extremities Estimated Nutritional Goals BEE in Kcals: Adj wt of IBW Calories/Kcals/Kg 25-30 Kcals Calculated 0611-3176 Protein: Adj wt of IBW Protein g/k-1.2 Protein Calculated 58-70 Fluid: ml 1450-1740ml (1ml/kcal) Nutritional Problem No current Nutrition Prob Problem N/A Malnutrition Alert Is there a minimum of two criteria No selected? Query Text:Check all the applicable criteria. A minimum of two criteria are recommended for diagnosis of either severe or non-severe malnutrition. Malnutrition Related to Morbid Obesity Malnutrition related to morbid obesity No Intervention/Recommendation Comments 1. Continue with [facility]-60gm diet as ordered. If glucose continue WNL, recomend regular diet for liberalization. 2. Monitor PO intake, wt, labs and skin integrity 3. F/U as high risk in 2-3 days, 03/07-03/08 Expected Outcomes/Goals Expected Outcomes/Goals 1. PO intake to meet at least 75% of nutritional needs. 2. Wt stability, skin to remain intact, labs to approach WNL.
--- NOTE | 2018-03-08 16:27 | Cardiology ---
03/07/[address] Holden. PROCEDURE: Echocardiogram. M-MODE ECHOCARDIOGRAM: Mitral valve, anterior leaflet of mitral valve shows normal excursion, EF velocity. Posterior leaflet of mitral valve shows normal excursion. Left ventricular posterior wall shows increased thickness, normal excursion. Interventricular septum shows increased thickness, normal excursion, hypertrophy of the left ventricle, ejection fraction 60%. Left atrium enlarged 4.6 cm. Aortic root shows normal dimension, normal excursion of aortic leaflets. Aortic leaflets shows decreased excursion consistent with aortic stenosis. CONCLUSION: Hypertrophy of the left ventricle, aortic stenosis, left atrial enlargement, ejection fraction 55%. 2D ECHO: Long axis view showed normal sized left ventricle with hypertrophy of the left ventricle. Left atrium enlarged. Aortic root shows normal dimension, aortic stenosis. Short axis view of mitral valve normal. Short axis view of aortic valve shows aortic stenosis. Apical four chamber view showed normal sized left ventricle with hypertrophy of the left ventricle. Left atrium enlarged. Right ventricular cavity, right atrium normal, no pericardial effusion. CONCLUSION: Hypertrophy of the left ventricle, left atrial enlargement, and aortic stenosis. Doppler study shows prominent area consistent with poor compliance of left ventricle, mild tricuspid regurgitation, severe mitral regurgitation, moderate aortic regurgitation, aortic valve area of 0.86 square cm. Mean pressure gradient of 57 mmHg and mean gradient 37 mmHg. [facility]# [id number]
[2018-03-09] MEDS: D5-0.9%NS 1,000 ML IV SCH ×2 (04:57→21:20)
[2018-03-09] MEDS: metroNIDAZOLE 500mg/NS 100mL 500 MG/100 ML BAG IV SCH ×3 (04:58→21:20)
[2018-03-09 06:21] LABS: % BASOPHILS 0.6 % (0.0-2.0); % EOSINOPHILS 1.6 % (0.0-5.0); % LYMPHOCYTES 25.4 % (20.0-50.0); % MONOCYTES 10.9 % (2.0-10.0); % NEUTROPHILS 61.5 % (40.0-80.0); EOSINOPHILE ABSOLUTE 0.1 Th/cmm (0.1-0.4); HEMATOCRIT 34.3 % (41.0-60); HEMOGLOBIN 11.6 gm/dL (12-16); LYMPHOCYTE ABSOLUTE 1.4 Th/cmm (1.5-3.0); MEAN CORPUSCULAR HEMOGLOBIN 28.5 pg (27.0-31.0); MEAN CORPUSCULAR HGB CONC 33.9 pg (28.0-36.0); MEAN PLATELET VOLUME 7.8 fl; MONOCYTE ABSOLUTE 0.6 Th/cmm (0.3-1.0); NEUTROPHILE ABSOLUTE 3.6 Th/cmm (1.8-8.0); PLATELET COUNT 170 Th/cmm (150-400); RED BLOOD COUNT 4.09 Mil/cmm (3.80-5.80); RED CELL DISTRIBUTION WIDTH 12.9 % (11.5-20.0); WHITE BLOOD COUNT 5.7 Th/cmm (4.8-10.8)
[2018-03-09 06:41] LABS: ALB/GLOB RATIO 1.2 (1.0-1.8); ALBUMIN 3.3 gm/dL (4.2-5.5); ALKALINE PHOSPHATASE 44 U/L (34-104); ANION GAP 9.4 (7.0-16.0); BILIRUBIN,TOTAL 1.2 mg/dL (0.3-1.0); BUN - UREA NITROGEN 8 mg/dL (7-25); CALCIUM SERUM 8.7 mg/dL (8.6-10.3); CARBON DIOXIDE 26.8 mEq/L (21.0-31.0); CHLORIDE 106 mEq/L (98-107); CREATININE - SERUM 0.9 mg/dL (0.7-1.3); GLUCOSE 108 mg/dL (70-105); POTASSIUM SERUM 3.2 mEq/L (3.5-5.1); SGOT 18 U/L (13-39); SGPT/ALT 9 U/L (7-52); SODIUM SERUM 139 mEq/L (136-145)
[2018-03-09] MEDS: INSULIN ASPART SLIDING SCALE 100 UNITS/ML UNIT SUBQ SCH ×4 (07:50→21:33)
[2018-03-09] MEDS ORDERED: Potassium Chloride 20 mEq ER Tab PO ONE (09:00)
--- NOTE | 2018-03-09 12:52 | General Progress Note ---
Subjective - Review of Systems Service Date: 03/09/18 Events since last encounter: labs noted tolerating oral intake Objective - Results Result Diagrams: 03/09/18 05:40 03/09/18 05:40 Recent Labs: Laboratory Last Values WBC 5.7 Th/cmm (4.8-10.8) 03/09/18 05:40 RBC 4.09 Mil/cmm (3.80-5.80) 03/09/18 05:40 Hgb 11.6 gm/dL (12-16) L 03/09/18 05:40 Hct 34.3 % (41.0-60) L 03/09/18 05:40 MCV 84.0 fl (80-99) 03/09/18 05:40 MCH 28.5 pg (27.0-31.0) 03/09/18 05:40 MCHC Differential 33.9 pg (28.0-36.0) 03/09/18 05:40 RDW 12.9 % (11.5-20.0) 03/09/18 05:40 Plt Count 170 Th/cmm (150-400) 03/09/18 05:40 MPV 7.8 fl 03/09/18 05:40 Neutrophils % 61.5 % (40.0-80.0) 03/09/18 05:40 Lymphocytes % 25.4 % (20.0-50.0) 03/09/18 05:40 Monocytes % 10.9 % (2.0-10.0) H 03/09/18 05:40 Eosinophils % 1.6 % (0.0-5.0) 03/09/18 05:40 Basophils % 0.6 % (0.0-2.0) 03/09/18 05:40 PT 10.9 SECONDS (9.5-11.5) 03/06/18 07:31 INR 1.05 (0.5-1.4) 03/06/18 07:31 PTT (Actin FS) 25.6 SECONDS (26.0-38.0) L 03/06/18 07:31 Sodium 139 mEq/L (136-145) 03/09/18 05:40 Potassium 3.2 mEq/L (3.5-5.1) L 03/09/18 05:40 Chloride 106 mEq/L (98-107) 03/09/18 05:40 Carbon Dioxide 26.8 mEq/L (21.0-31.0) 03/09/18 05:40 Anion Gap 9.4 (7.0-16.0) 03/09/18 05:40 BUN 8 mg/dL (7-25) 03/09/18 05:40 Creatinine 0.9 mg/dL (0.7-1.3) 03/09/18 05:40 Est GFR ( Amer) TNP 03/09/18 05:40 Est GFR (Non-Af Amer) TNP 03/09/18 05:40 BUN/Creatinine Ratio 8.9 03/09/18 05:40 Glucose 108 mg/dL (70-105) H 03/09/18 05:40 POC Glucose 94 MG/DL (70 - 105) 03/09/18 12:27 Calcium 8.7 mg/dL (8.6-10.3) 03/09/18 05:40 Magnesium 2.0 mg/dL (1.9-2.7) 03/06/18 05:30 Total Bilirubin 1.2 mg/dL (0.3-1.0) H 03/09/18 05:40 AST 18 U/L (13-39) 03/09/18 05:40 ALT 9 U/L (7-52) 03/09/18 05:40 Alkaline Phosphatase 44 U/L (34-104) 03/09/18 05:40 Troponin I 0.03 ng/mL (0.01-0.05) 03/04/18 14:00 B-Natriuretic Peptide 719.0 pg/mL (5.0-100.0) H 03/08/18 05:40 Total Protein 6.0 gm/dL (6.0-8.3) 03/09/18 05:40 Albumin 3.3 gm/dL (4.2-5.5) L 03/09/18 05:40 Globulin 2.7 gm/dL 03/09/18 05:40 Albumin/Globulin Ratio 1.2 (1.0-1.8) 03/09/18 05:40 Triglycerides 76 mg/dL (<150) 03/07/18 06:36 Cholesterol 175 mg/dL (<200) 03/07/18 06:36 LDL Cholesterol Direct 113 mg/dL (75-193) 03/07/18 06:36 HDL Cholesterol 42 mg/dL (23-92) 03/07/18 06:36 TSH 3.13 uIU/ml (0.34-5.60) 03/07/18 06:36 Urine Source RANDOM 03/04/18 15:45 Urine Color YELLOW 03/04/18 15:45 Urine Clarity CLEAR (CLEAR) 03/04/18 15:45 Urine pH 7.5 (4.6 - 8.0) 03/04/18 15:45 Ur Specific [place] 1.020 (1.005-1.030) 03/04/18 15:45 Urine Protein TRACE mg/dL (NEGATIVE) 03/04/18 15:45 Urine Glucose (UA) NEGATIVE mg/dL (NEGATIVE) 03/04/18 15:45 Urine Ketones NEGATIVE mg/dL (NEGATIVE) 03/04/18 15:45 Urine Blood NEGATIVE (NEGATIVE) 03/04/18 15:45 Urine Nitrate NEGATIVE (NEGATIVE) 03/04/18 15:45 Urine Bilirubin NEGATIVE (NEGATIVE) 03/04/18 15:45 Urine Urobilinogen 2.0 E.U./dL (0.2 - 1.0) 03/04/18 15:45 Ur Leukocyte Esterase NEGATIVE (NEGATIVE) 03/04/18 15:45 Urine RBC 0-2 /hpf (0-5) H 03/04/18 15:45 Urine WBC 0-2 /hpf (0-5) 03/04/18 15:45 Ur Epithelial Cells RARE /lpf (FEW) 03/04/18 15:45 Urine Bacteria NONE SEEN /hpf (NONE SEEN) 03/04/18 15:45 - Physical Exam Vitals and I&O: Vital Signs Temp 97.4 F 03/09/18 12:09 Pulse 71 03/09/18 12:09 Resp 18 03/09/18 12:09 BP 155/76 03/09/18 12:09 Pulse Ox 98 03/09/18 12:09 Intake & Output 03/08/18 03/09/18 03/09/18 18:59 06:59 18:59 Intake Total 220 200 Balance 220 200 Weight (lbs) 71.668 kg 71.668 kg Intake: Intake, IV Amount 100 200 metroNIDAZOLE 500mg/NS 100 200 100mL 500 mg In 100 ml @ 100 mls/hr IV Q8HR [facility] Rx #:[id number] Oral 120 Other: # Voids 2 158 # Bowel Movements 0 0 Weight Source Bedscale Bedscale Active Medications: Current Medications Brimonidine Tartrate (Alphagan 0.1% Ophth Soln) 1 drop EACH EYE TID [facility] Stop: 05/06/18 08:59 Last Admin: 03/09/18 09:47 Dose: 1 drop Dorzolamide HCl (Trusopt 2% Ophth Soln) 1 drop EACH EYE TID [facility] Stop: 05/06/18 08:59 Last Admin: 03/09/18 09:47 Dose: 1 drop Enalaprilat (Vasotec) 1.25 mg IVP Q6H PRN PRN Reason: FOR SBP>170 [facility] Stop: 05/06/18 05:43 Last Admin: 03/09/18 04:58 Dose: 1.25 mg Metronidazole (Flagyl) 500 mg in 100 mls @ 100 mls/hr IV Q8HR [facility] Stop: 05/04/18 12:59 Last Admin: 03/09/18 12:26 Dose: 100 mls/hr Dextrose/Sodium Chloride (D5-0.9%Ns) 1,000 mls @ 100 mls/hr IV .Q10H [facility] Stop: 05/05/18 07:29 Last Admin: 03/09/18 04:57 Dose: 100 mls/hr Insulin Aspart (Novolog Insulin Sliding Scale) 0 units SUBQ ACHS [facility]; Protocol Stop: 05/03/18 20:59 Last Admin: 03/09/18 12:28 Dose: Not Given Ketorolac Tromethamine (Toradol) 15 mg IVP Q6H PRN PRN Reason: Pain Stop: 05/07/18 09:39 Last Admin: 03/09/18 01:33 Dose: 15 mg Latanoprost (Xalatan 0.005% Ophth Soln) 1 drop EACH EYE HS [facility] Stop: 05/06/18 20:59 Last Admin: 03/08/18 22:25 Dose: 1 drop Ondansetron HCl (Zofran) 4 mg IV Q6H PRN PRN Reason: Nausea / Vomiting Stop: 05/03/18 20:29 Temazepam (Restoril) 15 mg PO HS PRN; Protocol PRN Reason: Insomnia Stop: 05/05/18 23:15 Last Admin: 03/06/18 23:27 Dose: 15 mg General: Alert, Mild distress, no No acute distress HEENT: Atraumatic Neck: Supple Cardiovascular: Regular rate, Normal S1, Normal S2 Abdomen: Bowel sounds - Procedures Procedures: Procedures Procedure Code Date INTRODUCE ADHESION BARRIER IN PERITON CAV, OPEN [id number] 03/04/18 RELEASE OMENTUM, OPEN APPROACH [id number] 03/04/18 SUPPLEMENT ABDOMINAL WALL WITH SYNTH SUB, OPEN APPROACH [id number] 03/04/18 Nutritional Asmnt/Malnutr-PDOC - Dietary Evaluation Malnutrition Findings (Please click <Entered> for more info): Nutritional Asmnt/Malnutrition Start: 03/05/18 14: 10 Text: Status: Complete Freq: Protocol: Document 03/05/18 14:10 EMA (Rec: 03/05/18 14:27 [email or web address]) Nutritional Asmnt/Malnutrition Patient General Information Nutritional Screening High Risk Diagnosis gastroenteritis, anemia, FTT Pertinent Medical Hx/Surgical Hx HTN, DM, CHF, CABG, hernia, bowel obstruction Subjective Information Per H&P, pt had vomiting and diarrhea for 2 weeks before admitted. Pt is deaf noted. Family at bed side at time of visit. Per family, pt has no N /V today. Current Diet Order/ Nutrition Support CCHO 60gm Pertinent Medications novolog, flagyl, zofran Pertinent Labs 03/04 Cl 108, glucose 85, POC 89 -113 03/05 POC 75-123 Nutritional Hx/Data Height 1.57 m Height (Calculated Centimeters) 157.5 Current Weight (lbs) 73.936 kg Weight (Calculated Kilograms) 73.9 Weight (Calculated Grams) 32736.6 [place] Body Weight 118 Body Mass Index (BMI) 29.8 Weight Status Overweight GI Symptoms GI Symptoms None Last BM not indicated Difficult in: None Usual diet at home per family pt eats regular textured diet and tolerates well Skin Integrity/Comment: 2+ pitting edema to right and left lower extremities Estimated Nutritional Goals BEE in Kcals: Adj wt of IBW Calories/Kcals/Kg 25-30 Kcals Calculated 5157-2641 Protein: Adj wt of IBW Protein g/k-1.2 Protein Calculated 58-70 Fluid: ml 1450-1740ml (1ml/kcal) Nutritional Problem No current Nutrition Prob Problem N/A Malnutrition Alert Is there a minimum of two criteria No selected? Query Text:Check all the applicable criteria. A minimum of two criteria are recommended for diagnosis of either severe or non-severe malnutrition. Malnutrition Related to Morbid Obesity Malnutrition related to morbid obesity No Intervention/Recommendation Comments 1. Continue with CCHO-60gm diet as ordered. If glucose continue WNL, recomend regular diet for liberalization. 2. Monitor PO intake, wt, labs and skin integrity 3. F/U as high risk in 2-3 days, 03/07-03/08 Expected Outcomes/Goals Expected Outcomes/Goals 1. PO intake to meet at least 75% of nutritional needs. 2. Wt stability, skin to remain intact, labs to approach WNL.
--- NOTE | 2018-03-09 22:29 | General Progress Note ---
Subjective - Review of Systems Service Date: 03/09/18 Subjective: awake and alert easily agitated denies cp Objective - Results Result Diagrams: 03/09/18 05:40 03/09/18 05:40 Recent Labs: Laboratory Last Values WBC 5.7 Th/cmm (4.8-10.8) 03/09/18 05:40 RBC 4.09 Mil/cmm (3.80-5.80) 03/09/18 05:40 Hgb 11.6 gm/dL (12-16) L 03/09/18 05:40 Hct 34.3 % (41.0-60) L 03/09/18 05:40 MCV 84.0 fl (80-99) 03/09/18 05:40 MCH 28.5 pg (27.0-31.0) 03/09/18 05:40 MCHC Differential 33.9 pg (28.0-36.0) 03/09/18 05:40 RDW 12.9 % (11.5-20.0) 03/09/18 05:40 Plt Count 170 Th/cmm (150-400) 03/09/18 05:40 MPV 7.8 fl 03/09/18 05:40 Neutrophils % 61.5 % (40.0-80.0) 03/09/18 05:40 Lymphocytes % 25.4 % (20.0-50.0) 03/09/18 05:40 Monocytes % 10.9 % (2.0-10.0) H 03/09/18 05:40 Eosinophils % 1.6 % (0.0-5.0) 03/09/18 05:40 Basophils % 0.6 % (0.0-2.0) 03/09/18 05:40 PT 10.9 SECONDS (9.5-11.5) 03/06/18 07:31 INR 1.05 (0.5-1.4) 03/06/18 07:31 PTT (Actin FS) 25.6 SECONDS (26.0-38.0) L 03/06/18 07:31 Sodium 139 mEq/L (136-145) 03/09/18 05:40 Potassium 3.2 mEq/L (3.5-5.1) L 03/09/18 05:40 Chloride 106 mEq/L (98-107) 03/09/18 05:40 Carbon Dioxide 26.8 mEq/L (21.0-31.0) 03/09/18 05:40 Anion Gap 9.4 (7.0-16.0) 03/09/18 05:40 BUN 8 mg/dL (7-25) 03/09/18 05:40 Creatinine 0.9 mg/dL (0.7-1.3) 03/09/18 05:40 Est GFR ( Amer) TNP 03/09/18 05:40 Est GFR (Non-Af Amer) TNP 03/09/18 05:40 BUN/Creatinine Ratio 8.9 03/09/18 05:40 Glucose 108 mg/dL (70-105) H 03/09/18 05:40 POC Glucose 122 MG/DL (70 - 105) H 03/09/18 21:13 Calcium 8.7 mg/dL (8.6-10.3) 03/09/18 05:40 Magnesium 2.0 mg/dL (1.9-2.7) 03/06/18 05:30 Total Bilirubin 1.2 mg/dL (0.3-1.0) H 03/09/18 05:40 AST 18 U/L (13-39) 03/09/18 05:40 ALT 9 U/L (7-52) 03/09/18 05:40 Alkaline Phosphatase 44 U/L (34-104) 03/09/18 05:40 Troponin I 0.03 ng/mL (0.01-0.05) 03/04/18 14:00 B-Natriuretic Peptide 719.0 pg/mL (5.0-100.0) H 03/08/18 05:40 Total Protein 6.0 gm/dL (6.0-8.3) 03/09/18 05:40 Albumin 3.3 gm/dL (4.2-5.5) L 03/09/18 05:40 Globulin 2.7 gm/dL 03/09/18 05:40 Albumin/Globulin Ratio 1.2 (1.0-1.8) 03/09/18 05:40 Triglycerides 76 mg/dL (<150) 03/07/18 06:36 Cholesterol 175 mg/dL (<200) 03/07/18 06:36 LDL Cholesterol Direct 113 mg/dL (75-193) 03/07/18 06:36 HDL Cholesterol 42 mg/dL (23-92) 03/07/18 06:36 TSH 3.13 uIU/ml (0.34-5.60) 03/07/18 06:36 Urine Source RANDOM 03/04/18 15:45 Urine Color YELLOW 03/04/18 15:45 Urine Clarity CLEAR (CLEAR) 03/04/18 15:45 Urine pH 7.5 (4.6 - 8.0) 03/04/18 15:45 Ur Specific [place] 1.020 (1.005-1.030) 03/04/18 15:45 Urine Protein TRACE mg/dL (NEGATIVE) 03/04/18 15:45 Urine Glucose (UA) NEGATIVE mg/dL (NEGATIVE) 03/04/18 15:45 Urine Ketones NEGATIVE mg/dL (NEGATIVE) 03/04/18 15:45 Urine Blood NEGATIVE (NEGATIVE) 03/04/18 15:45 Urine Nitrate NEGATIVE (NEGATIVE) 03/04/18 15:45 Urine Bilirubin NEGATIVE (NEGATIVE) 03/04/18 15:45 Urine Urobilinogen 2.0 E.U./dL (0.2 - 1.0) 03/04/18 15:45 Ur Leukocyte Esterase NEGATIVE (NEGATIVE) 03/04/18 15:45 Urine RBC 0-2 /hpf (0-5) H 03/04/18 15:45 Urine WBC 0-2 /hpf (0-5) 03/04/18 15:45 Ur Epithelial Cells RARE /lpf (FEW) 03/04/18 15:45 Urine Bacteria NONE SEEN /hpf (NONE SEEN) 03/04/18 15:45 - Physical Exam Vitals and I&O: Vital Signs Temp 98.2 F 03/09/18 20:00 Pulse 116 03/09/18 21:22 Resp 18 03/09/18 20:00 BP 176/87 03/09/18 20:00 Pulse Ox 96 03/09/18 20:00 Intake & Output 03/09/18 03/09/18 03/10/18 06:59 18:59 06:59 Intake Total 200 0 Balance 200 0 Weight (lbs) 71.668 kg 71.866 kg Intake: Intake, IV Amount 200 1100 D5-0.9%Ns 1,000 ml @ 100 1000 mls/hr IV .Q10H [facility] Rx#: [id number] metroNIDAZOLE 500mg/NS 200 100 100mL 500 mg In 100 ml @ 100 mls/hr IV Q8HR [facility] Rx #:[id number] Oral 950 Other: # Voids 158 2 # Bowel Movements 0 0 Weight Source Bedscale Bedscale Active Medications: Current Medications Brimonidine Tartrate (Alphagan 0.1% Ophth Soln) 1 drop EACH EYE TID [facility] Stop: 05/06/18 08:59 Last Admin: 03/09/18 21:19 Dose: 1 drop Dorzolamide HCl (Trusopt 2% Ophth Soln) 1 drop EACH EYE TID [facility] Stop: 05/06/18 08:59 Last Admin: 03/09/18 21:19 Dose: 1 drop Enalaprilat (Vasotec) 1.25 mg IVP Q6H PRN PRN Reason: FOR SBP>170 [facility] Stop: 05/06/18 05:43 Last Admin: 03/09/18 04:58 Dose: 1.25 mg Metronidazole (Flagyl) 500 mg in 100 mls @ 100 mls/hr IV Q8HR [facility] Stop: 05/04/18 12:59 Last Infusion: 03/09/18 13:28 Dose: Infused Dextrose/Sodium Chloride (D5-0.9%Ns) 1,000 mls @ 100 mls/hr IV .Q10H [facility] Stop: 05/05/18 07:29 Last Admin: 03/09/18 21:20 Dose: 100 mls/hr Insulin Aspart (Novolog Insulin Sliding Scale) 0 [facility]Q [facility]; Protocol Stop: 05/03/18 20:59 Last Admin: 03/09/18 21:33 Dose: Not Given Ketorolac Tromethamine (Toradol) 15 mg IVP Q6H PRN PRN Reason: Pain Stop: 05/07/18 09:39 Last Admin: 03/09/18 01:33 Dose: 15 mg Latanoprost (Xalatan 0.005% Ophth Soln) 1 drop EACH EYE HS [facility] Stop: 05/06/18 20:59 Last Admin: 03/09/18 21:19 Dose: 1 drop Ondansetron HCl (Zofran) 4 mg IV Q6H PRN PRN Reason: Nausea / Vomiting Stop: 05/03/18 20:29 Temazepam (Restoril) 15 mg PO HS PRN; Protocol PRN Reason: Insomnia Stop: 05/05/18 23:15 Last Admin: 03/06/18 23:27 Dose: 15 mg General: Alert, Mild distress, no No acute distress HEENT: Atraumatic Neck: Supple Cardiovascular: Regular rate, Normal S1, Normal S2 Abdomen: Bowel sounds - Procedures Procedures: Procedures Procedure Code Date INTRODUCE ADHESION BARRIER IN PERITON CAV, OPEN [id number] 03/04/18 RELEASE OMENTUM, OPEN APPROACH [id number] 03/04/18 SUPPLEMENT ABDOMINAL WALL WITH SYNTH SUB, OPEN APPROACH [id number] 03/04/18 Assessment/Plan - Assessment Assessment: abdominal pain hypertension congestive heart failure - Plan Plan: cpm Nutritional Asmnt/Malnutr-PDOC - Dietary Evaluation Malnutrition Findings (Please click <Entered> for more info): Nutritional Asmnt/Malnutrition Start: 03/05/18 14: 10 Text: Status: Complete Freq: Protocol: Document 03/05/18 14:10 JULIA (Rec: 03/05/18 14:27 [email or web address]) Nutritional Asmnt/Malnutrition Patient General Information Nutritional Screening High Risk Diagnosis gastroenteritis, anemia, FTT Pertinent Medical Hx/Surgical Hx HTN, DM, CHF, CABG, hernia, bowel obstruction Subjective Information Per H&P, pt had vomiting and diarrhea for 2 weeks before admitted. Pt is deaf noted. Family at bed side at time of visit. Per family, pt has no N /V today. Current Diet Order/ Nutrition Support CCHO 60gm Pertinent Medications novolog, flagyl, zofran Pertinent Labs 03/04 Cl 108, glucose 85, POC 89 -113 03/05 POC 75-123 Nutritional Hx/Data Height 1.57 m Height (Calculated Centimeters) 157.5 Current Weight (lbs) 73.936 kg Weight (Calculated Kilograms) 73.9 Weight (Calculated Grams) 02779.6 [place] Body Weight 118 Body Mass Index (BMI) 29.8 Weight Status Overweight GI Symptoms GI Symptoms None Last BM not indicated Difficult in: None Usual diet at home per family pt eats regular textured diet and tolerates well Skin Integrity/Comment: 2+ pitting edema to right and left lower extremities Estimated Nutritional Goals BEE in Kcals: Adj wt of IBW Calories/Kcals/Kg 25-30 Kcals Calculated 4071-7518 Protein: Adj wt of IBW Protein g/k-1.2 Protein Calculated 58-70 Fluid: ml 1450-1740ml (1ml/kcal) Nutritional Problem No current Nutrition Prob Problem N/A Malnutrition Alert Is there a minimum of two criteria No selected? Query Text:Check all the applicable criteria. A minimum of two criteria are recommended for diagnosis of either severe or non-severe malnutrition. Malnutrition Related to Morbid Obesity Malnutrition related to morbid obesity No Intervention/Recommendation Comments 1. Continue with CCHO-60gm diet as ordered. If glucose continue WNL, recomend regular diet for liberalization. 2. Monitor PO intake, wt, labs and skin integrity 3. F/U as high risk in 2-3 days, 03/07-03/08 Expected Outcomes/Goals Expected Outcomes/Goals 1. PO intake to meet at least 75% of nutritional needs. 2. Wt stability, skin to remain intact, labs to approach WNL.
[2018-03-10] MEDS: metroNIDAZOLE 500mg/NS 100mL 500 MG/100 ML BAG IV SCH ×2 (05:09→13:43)
[2018-03-10 06:31] LABS: ANION GAP 9.1 (7.0-16.0); BUN - UREA NITROGEN 11 mg/dL (7-25); CALCIUM SERUM 8.5 mg/dL (8.6-10.3); CARBON DIOXIDE 25.4 mEq/L (21.0-31.0); CHLORIDE 107 mEq/L (98-107); CREATININE - SERUM 0.9 mg/dL (0.7-1.3); GLUCOSE 111 mg/dL (70-105); POTASSIUM SERUM 3.5 mEq/L (3.5-5.1); SODIUM SERUM 138 mEq/L (136-145)
[2018-03-10 06:35] LABS: % BASOPHILS 0.4 % (0.0-2.0); % EOSINOPHILS 2.4 % (0.0-5.0); % MONOCYTES 8.8 % (2.0-10.0); % NEUTROPHILS 67.4 % (40.0-80.0); EOSINOPHILE ABSOLUTE 0.1 Th/cmm (0.1-0.4); HEMATOCRIT 32.8 % (41.0-60); MEAN CELL VOLUME 84.8 fl (80-99); MEAN CORPUSCULAR HEMOGLOBIN 28.4 pg (27.0-31.0); MEAN CORPUSCULAR HGB CONC 33.4 pg (28.0-36.0); MEAN PLATELET VOLUME 7.9 fl; MONOCYTE ABSOLUTE 0.4 Th/cmm (0.3-1.0); NEUTROPHILE ABSOLUTE 3.4 Th/cmm (1.8-8.0); PLATELET COUNT 170 Th/cmm (150-400); RED BLOOD COUNT 3.87 Mil/cmm (3.80-5.80); RED CELL DISTRIBUTION WIDTH 12.9 % (11.5-20.0); WHITE BLOOD COUNT 4.9 Th/cmm (4.8-10.8)
[2018-03-10] MEDS: INSULIN ASPART SLIDING SCALE 100 UNITS/ML UNIT SUBQ SCH ×3 (08:15→17:28)
--- NOTE | 2018-03-10 11:09 | General Progress Note ---
Subjective - Review of Systems Service Date: 03/10/18 Events since last encounter: redressed, incisiion is clean may DC, sutures are absorbable Objective - Results Result Diagrams: 03/10/18 05:40 03/10/18 05:40 Recent Labs: Laboratory Last Values WBC 4.9 Th/cmm (4.8-10.8) 03/10/18 05:40 RBC 3.87 Mil/cmm (3.80-5.80) 03/10/18 05:40 Hgb 11.0 gm/dL (12-16) L 03/10/18 05:40 Hct 32.8 % (41.0-60) L 03/10/18 05:40 MCV 84.8 fl (80-99) 03/10/18 05:40 MCH 28.4 pg (27.0-31.0) 03/10/18 05:40 MCHC Differential 33.4 pg (28.0-36.0) 03/10/18 05:40 RDW 12.9 % (11.5-20.0) 03/10/18 05:40 Plt Count 170 Th/cmm (150-400) 03/10/18 05:40 MPV 7.9 fl 03/10/18 05:40 Neutrophils % 67.4 % (40.0-80.0) 03/10/18 05:40 Lymphocytes % 21.0 % (20.0-50.0) 03/10/18 05:40 Monocytes % 8.8 % (2.0-10.0) 03/10/18 05:40 Eosinophils % 2.4 % (0.0-5.0) 03/10/18 05:40 Basophils % 0.4 % (0.0-2.0) 03/10/18 05:40 PT 10.9 SECONDS (9.5-11.5) 03/06/18 07:31 INR 1.05 (0.5-1.4) 03/06/18 07:31 PTT (Actin FS) 25.6 SECONDS (26.0-38.0) L 03/06/18 07:31 Sodium 138 mEq/L (136-145) 03/10/18 05:40 Potassium 3.5 mEq/L (3.5-5.1) 03/10/18 05:40 Chloride 107 mEq/L (98-107) 03/10/18 05:40 Carbon Dioxide 25.4 mEq/L (21.0-31.0) 03/10/18 05:40 Anion Gap 9.1 (7.0-16.0) 03/10/18 05:40 BUN 11 mg/dL (7-25) 03/10/18 05:40 Creatinine 0.9 mg/dL (0.7-1.3) 03/10/18 05:40 Est GFR ( Amer) TNP 03/10/18 05:40 Est GFR (Non-Af Amer) TNP 03/10/18 05:40 BUN/Creatinine Ratio 12.2 03/10/18 05:40 Glucose 111 mg/dL (70-105) H 03/10/18 05:40 POC Glucose 92 MG/DL (70 - 105) 03/10/18 08:09 Calcium 8.5 mg/dL (8.6-10.3) L 03/10/18 05:40 Magnesium 2.0 mg/dL (1.9-2.7) 03/06/18 05:30 Total Bilirubin 1.2 mg/dL (0.3-1.0) H 03/09/18 05:40 AST 18 U/L (13-39) 03/09/18 05:40 ALT 9 U/L (7-52) 03/09/18 05:40 Alkaline Phosphatase 44 U/L (34-104) 03/09/18 05:40 Troponin I 0.03 ng/mL (0.01-0.05) 03/04/18 14:00 B-Natriuretic Peptide 719.0 pg/mL (5.0-100.0) H 03/08/18 05:40 Total Protein 6.0 gm/dL (6.0-8.3) 03/09/18 05:40 Albumin 3.3 gm/dL (4.2-5.5) L 03/09/18 05:40 Globulin 2.7 gm/dL 03/09/18 05:40 Albumin/Globulin Ratio 1.2 (1.0-1.8) 03/09/18 05:40 Triglycerides 76 mg/dL (<150) 03/07/18 06:36 Cholesterol 175 mg/dL (<200) 03/07/18 06:36 LDL Cholesterol Direct 113 mg/dL (75-193) 03/07/18 06:36 HDL Cholesterol 42 mg/dL (23-92) 03/07/18 06:36 TSH 3.13 uIU/ml (0.34-5.60) 03/07/18 06:36 Urine Source RANDOM 03/04/18 15:45 Urine Color YELLOW 03/04/18 15:45 Urine Clarity CLEAR (CLEAR) 03/04/18 15:45 Urine pH 7.5 (4.6 - 8.0) 03/04/18 15:45 Ur Specific [place] 1.020 (1.005-1.030) 03/04/18 15:45 Urine Protein TRACE mg/dL (NEGATIVE) 03/04/18 15:45 Urine Glucose (UA) NEGATIVE mg/dL (NEGATIVE) 03/04/18 15:45 Urine Ketones NEGATIVE mg/dL (NEGATIVE) 03/04/18 15:45 Urine Blood NEGATIVE (NEGATIVE) 03/04/18 15:45 Urine Nitrate NEGATIVE (NEGATIVE) 03/04/18 15:45 Urine Bilirubin NEGATIVE (NEGATIVE) 03/04/18 15:45 Urine Urobilinogen 2.0 E.U./dL (0.2 - 1.0) 03/04/18 15:45 Ur Leukocyte Esterase NEGATIVE (NEGATIVE) 03/04/18 15:45 Urine RBC 0-2 /hpf (0-5) H 03/04/18 15:45 Urine WBC 0-2 /hpf (0-5) 03/04/18 15:45 Ur Epithelial Cells RARE /lpf (FEW) 03/04/18 15:45 Urine Bacteria NONE SEEN /hpf (NONE SEEN) 03/04/18 15:45 - Physical Exam Vitals and I&O: Vital Signs Temp 97.1 F 03/10/18 07:51 Pulse 70 03/10/18 07:51 Resp 18 03/10/18 07:51 BP 177/96 03/10/18 07:51 Pulse Ox 98 03/10/18 07:51 Intake & Output 03/09/18 03/10/18 03/10/18 18:59 06:59 18:59 Intake Total 2049 200 Output Total 300 Balance 2049 -100 Weight (lbs) 71.866 kg 74.661 kg Intake: Intake, IV Amount 1100 100 D5-0.9%Ns 1,000 ml @ 100 1000 mls/hr IV .Q10H [facility] Rx#: [id number] metroNIDAZOLE 500mg/NS 100 100 100mL 500 mg In 100 ml @ 100 mls/hr IV Q8HR [facility] Rx #:[id number] Oral 950 100 Output: Urine 300 Other: # Voids 2 # Bowel Movements 0 0 Weight Source Bedscale Bedscale Active Medications: Current Medications Brimonidine Tartrate (Alphagan 0.1% Ophth Soln) 1 drop EACH EYE TID [facility] Stop: 05/06/18 08:59 Last Admin: 03/10/18 09:39 Dose: 1 drop Dorzolamide HCl (Trusopt 2% Ophth Soln) 1 drop EACH EYE TID [facility] Stop: 05/06/18 08:59 Last Admin: 03/10/18 09:40 Dose: 1 drop Enalaprilat (Vasotec) 1.25 mg IVP Q6H PRN PRN Reason: FOR SBP>170 [facility] Stop: 05/06/18 05:43 Last Admin: 03/10/18 02:52 Dose: 1.25 mg Metronidazole (Flagyl) 500 mg in 100 mls @ 100 mls/hr IV Q8HR [facility] Stop: 05/04/18 12:59 Last Admin: 03/10/18 05:09 Dose: 100 mls/hr Dextrose/Sodium Chloride (D5-0.9%Ns) 1,000 mls @ 100 mls/hr IV .Q10H [facility] Stop: 05/05/18 07:29 Last Admin: 03/09/18 21:20 Dose: 100 mls/hr Insulin Aspart (Novolog Insulin Sliding Scale) 0 units SUBQ ACHS [facility]; Protocol Stop: 05/03/18 20:59 Last Admin: 03/10/18 08:15 Dose: Not Given Ketorolac Tromethamine (Toradol) 15 mg IVP Q6H PRN PRN Reason: Pain Stop: 05/07/18 09:39 Last Admin: 03/09/18 01:33 Dose: 15 mg Latanoprost (Xalatan 0.005% Ophth Soln) 1 drop EACH EYE HS [facility] Stop: 05/06/18 20:59 Last Admin: 03/09/18 21:19 Dose: 1 drop Ondansetron HCl (Zofran) 4 mg IV Q6H PRN PRN Reason: Nausea / Vomiting Stop: 05/03/18 20:29 Temazepam (Restoril) 15 mg PO HS PRN; Protocol PRN Reason: Insomnia Stop: 05/05/18 23:15 Last Admin: 03/06/18 23:27 Dose: 15 mg General: Alert, Mild distress, no No acute distress HEENT: Atraumatic Neck: Supple Cardiovascular: Regular rate, Normal S1, Normal S2 Abdomen: Bowel sounds - Procedures Procedures: Procedures Procedure Code Date INTRODUCE ADHESION BARRIER IN PERITON CAV, OPEN [id number] 03/04/18 RELEASE OMENTUM, OPEN APPROACH [id number] 03/04/18 SUPPLEMENT ABDOMINAL WALL WITH SYNTH SUB, OPEN APPROACH [id number] 03/04/18 Nutritional Asmnt/Malnutr-PDOC - Dietary Evaluation Malnutrition Findings (Please click <Entered> for more info): Nutritional Asmnt/Malnutrition Start: 03/05/18 14: 10 Text: Status: Complete Freq: Protocol: Document 03/05/18 14:10 BRENDA (Rec: 03/05/18 14:27 [email or web address] [email or web address]) Nutritional Asmnt/Malnutrition Patient General Information Nutritional Screening High Risk Diagnosis gastroenteritis, anemia, FTT Pertinent Medical Hx/Surgical Hx HTN, DM, CHF, CABG, hernia, bowel obstruction Subjective Information Per H&P, pt had vomiting and diarrhea for 2 weeks before admitted. Pt is deaf noted. Family at bed side at time of visit. Per family, pt has no N /V today. Current Diet Order/ Nutrition Support CCHO 60gm Pertinent Medications novolog, flagyl, zofran Pertinent Labs 03/04 Cl 108, glucose 85, POC 89 -113 03/05 POC 75-123 Nutritional Hx/Data Height 1.57 m Height (Calculated Centimeters) 157.5 Current Weight (lbs) 73.936 kg Weight (Calculated Kilograms) 73.9 Weight (Calculated Grams) 52105.6 [place]mer Body Weight 118 Body Mass Index (BMI) 29.8 Weight Status Overweight GI Symptoms GI Symptoms None Last BM not indicated Difficult in: None Usual diet at home per family pt eats regular textured diet and tolerates well Skin Integrity/Comment: 2+ pitting edema to right and left lower extremities Estimated Nutritional Goals BEE in Kcals: Adj wt of IBW Calories/Kcals/Kg 25-30 Kcals Calculated 1226-4032 Protein: Adj wt of IBW Protein g/k-1.2 Protein Calculated 58-70 Fluid: ml 1450-1740ml (1ml/kcal) Nutritional Problem No current Nutrition Prob Problem N/A Malnutrition Alert Is there a minimum of two criteria No selected? Query Text:Check all the applicable criteria. A minimum of two criteria are recommended for diagnosis of either severe or non-severe malnutrition. Malnutrition Related to Morbid Obesity Malnutrition related to morbid obesity No Intervention/Recommendation Comments 1. Continue with CCHO-60gm diet as ordered. If glucose continue WNL, recomend regular diet for liberalization. 2. Monitor PO intake, wt, labs and skin integrity 3. F/U as high risk in 2-3 days, 03/07-03/08 Expected Outcomes/Goals Expected Outcomes/Goals 1. PO intake to meet at least 75% of nutritional needs. 2. Wt stability, skin to remain intact, labs to approach WNL.
--- NOTE | 2018-03-10 14:31 | General Progress Note ---
Subjective - Review of Systems Events since last encounter: patient awake in no distress denies pain Subjective: awake and alert easily agitated denies cp Objective - Results Result Diagrams: 03/10/18 05:40 03/10/18 05:40 Recent Labs: Laboratory Last Values WBC 4.9 Th/cmm (4.8-10.8) 03/10/18 05:40 RBC 3.87 Mil/cmm (3.80-5.80) 03/10/18 05:40 Hgb 11.0 gm/dL (12-16) L 03/10/18 05:40 Hct 32.8 % (41.0-60) L 03/10/18 05:40 MCV 84.8 fl (80-99) 03/10/18 05:40 MCH 28.4 pg (27.0-31.0) 03/10/18 05:40 MCHC Differential 33.4 pg (28.0-36.0) 03/10/18 05:40 RDW 12.9 % (11.5-20.0) 03/10/18 05:40 Plt Count 170 Th/cmm (150-400) 03/10/18 05:40 MPV 7.9 fl 03/10/18 05:40 Neutrophils % 67.4 % (40.0-80.0) 03/10/18 05:40 Lymphocytes % 21.0 % (20.0-50.0) 03/10/18 05:40 Monocytes % 8.8 % (2.0-10.0) 03/10/18 05:40 Eosinophils % 2.4 % (0.0-5.0) 03/10/18 05:40 Basophils % 0.4 % (0.0-2.0) 03/10/18 05:40 PT 10.9 SECONDS (9.5-11.5) 03/06/18 07:31 INR 1.05 (0.5-1.4) 03/06/18 07:31 PTT (Actin FS) 25.6 SECONDS (26.0-38.0) L 03/06/18 07:31 Sodium 138 mEq/L (136-145) 03/10/18 05:40 Potassium 3.5 mEq/L (3.5-5.1) 03/10/18 05:40 Chloride 107 mEq/L (98-107) 03/10/18 05:40 Carbon Dioxide 25.4 mEq/L (21.0-31.0) 03/10/18 05:40 Anion Gap 9.1 (7.0-16.0) 03/10/18 05:40 BUN 11 mg/dL (7-25) 03/10/18 05:40 Creatinine 0.9 mg/dL (0.7-1.3) 03/10/18 05:40 Est GFR ( Amer) TNP 03/10/18 05:40 Est GFR (Non-Af Amer) TNP 03/10/18 05:40 BUN/Creatinine Ratio 12.2 03/10/18 05:40 Glucose 111 mg/dL (70-105) H 03/10/18 05:40 POC Glucose 112 MG/DL (70 - 105) H 03/10/18 11:49 Calcium 8.5 mg/dL (8.6-10.3) L 03/10/18 05:40 Magnesium 2.0 mg/dL (1.9-2.7) 03/06/18 05:30 Total Bilirubin 1.2 mg/dL (0.3-1.0) H 03/09/18 05:40 AST 18 U/L (13-39) 03/09/18 05:40 ALT 9 U/L (7-52) 03/09/18 05:40 Alkaline Phosphatase 44 U/L (34-104) 03/09/18 05:40 Troponin I 0.03 ng/mL (0.01-0.05) 03/04/18 14:00 B-Natriuretic Peptide 719.0 pg/mL (5.0-100.0) H 03/08/18 05:40 Total Protein 6.0 gm/dL (6.0-8.3) 03/09/18 05:40 Albumin 3.3 gm/dL (4.2-5.5) L 03/09/18 05:40 Globulin 2.7 gm/dL 03/09/18 05:40 Albumin/Globulin Ratio 1.2 (1.0-1.8) 03/09/18 05:40 Triglycerides 76 mg/dL (<150) 03/07/18 06:36 Cholesterol 175 mg/dL (<200) 03/07/18 06:36 LDL Cholesterol Direct 113 mg/dL (75-193) 03/07/18 06:36 HDL Cholesterol 42 mg/dL (23-92) 03/07/18 06:36 TSH 3.13 uIU/ml (0.34-5.60) 03/07/18 06:36 Urine Source RANDOM 03/04/18 15:45 Urine Color YELLOW 03/04/18 15:45 Urine Clarity CLEAR (CLEAR) 03/04/18 15:45 Urine pH 7.5 (4.6 - 8.0) 03/04/18 15:45 Ur Specific [place] 1.020 (1.005-1.030) 03/04/18 15:45 Urine Protein TRACE mg/dL (NEGATIVE) 03/04/18 15:45 Urine Glucose (UA) NEGATIVE mg/dL (NEGATIVE) 03/04/18 15:45 Urine Ketones NEGATIVE mg/dL (NEGATIVE) 03/04/18 15:45 Urine Blood NEGATIVE (NEGATIVE) 03/04/18 15:45 Urine Nitrate NEGATIVE (NEGATIVE) 03/04/18 15:45 Urine Bilirubin NEGATIVE (NEGATIVE) 03/04/18 15:45 Urine Urobilinogen 2.0 E.U./dL (0.2 - 1.0) 03/04/18 15:45 Ur Leukocyte Esterase NEGATIVE (NEGATIVE) 03/04/18 15:45 Urine RBC 0-2 /hpf (0-5) H 03/04/18 15:45 Urine WBC 0-2 /hpf (0-5) 03/04/18 15:45 Ur Epithelial Cells RARE /lpf (FEW) 03/04/18 15:45 Urine Bacteria NONE SEEN /hpf (NONE SEEN) 03/04/18 15:45 - Physical Exam Vitals and I&O: Vital Signs Temp 98.5 F 03/10/18 11:59 Pulse 74 03/10/18 11:59 Resp 18 03/10/18 11:59 BP 159/79 03/10/18 11:59 Pulse Ox 96 03/10/18 11:59 Intake & Output 03/09/18 03/10/18 03/10/18 18:59 06:59 18:59 Intake Total 0 300 200 Output Total 300 350 Balance 2049 0 -150 Weight (lbs) 71.866 kg 74.661 kg 74.644 kg Intake: Intake, IV Amount 1100 200 D5-0.9%Ns 1,000 ml @ 100 1000 mls/hr IV .Q10H [facility] Rx#: [id number] metroNIDAZOLE 500mg/NS 100 200 100mL 500 mg In 100 ml @ 100 mls/hr IV Q8HR [facility] Rx #:[id number] Oral 950 100 200 Output: Urine 300 350 Other: # Voids 2 2 # Bowel Movements 0 0 0 Weight Source Bedscale Bedscale Bedscale Active Medications: Current Medications Brimonidine Tartrate (Alphagan 0.1% Ophth Soln) 1 drop EACH EYE TID [facility] Stop: 05/06/18 08:59 Last Admin: 03/10/18 14:08 Dose: 1 drop Dorzolamide HCl (Trusopt 2% Ophth Soln) 1 drop EACH EYE TID [facility] Stop: 05/06/18 08:59 Last Admin: 03/10/18 14:08 Dose: 1 drop Enalaprilat (Vasotec) 1.25 mg IVP Q6H PRN PRN Reason: FOR SBP>170 [facility] Stop: 05/06/18 05:43 Last Admin: 03/10/18 02:52 Dose: 1.25 mg Metronidazole (Flagyl) 500 mg in 100 mls @ 100 mls/hr IV Q8HR [facility] Stop: 05/04/18 12:59 Last Admin: 03/10/18 13:43 Dose: 100 mls/hr Dextrose/Sodium Chloride (D5-0.9%Ns) 1,000 mls @ 100 mls/hr IV .Q10H [facility] Stop: 05/05/18 07:29 Last Admin: 03/09/18 21:20 Dose: 100 mls/hr Insulin Aspart (Novolog Insulin Sliding Scale) 0 units SUBQ [facility]; Protocol Stop: 05/03/18 20:59 Last Admin: 03/10/18 12:10 Dose: Not Given Ketorolac Tromethamine (Toradol) 15 mg IVP Q6H PRN PRN Reason: Pain Stop: 05/07/18 09:39 Last Admin: 03/09/18 01:33 Dose: 15 mg Latanoprost (Xalatan 0.005% Ophth Soln) 1 drop EACH EYE [facility] Stop: 05/06/18 20:59 Last Admin: 03/09/18 21:19 Dose: 1 drop Ondansetron HCl (Zofran) 4 mg IV Q6H PRN PRN Reason: Nausea / Vomiting Stop: 05/03/18 20:29 Temazepam (Restoril) 15 mg PO HS PRN; Protocol PRN Reason: Insomnia Stop: 05/05/18 23:15 Last Admin: 03/06/18 23:27 Dose: 15 mg General: Alert, Mild distress, no No acute distress HEENT: Atraumatic Neck: Supple Cardiovascular: Regular rate, Normal S1, Normal S2 Abdomen: Bowel sounds - Procedures Procedures: Procedures Procedure Code Date INTRODUCE ADHESION BARRIER IN PERITON CAV, OPEN [id number] 03/04/18 RELEASE OMENTUM, OPEN APPROACH [id number] 03/04/18 SUPPLEMENT ABDOMINAL WALL WITH SYNTH SUB, OPEN APPROACH [id number] 03/04/18 Assessment/Plan - Assessment Assessment: abdominal pain hypertension congestive heart failure - Plan Plan: cpm Nutritional Asmnt/Malnutr-PDOC - Dietary Evaluation Malnutrition Findings (Please click <Entered> for more info): Nutritional Asmnt/Malnutrition Start: 03/05/18 14: 10 Text: Status: Complete Freq: Protocol: Document 03/05/18 14:10 LCHENG (Rec: 03/05/18 14:27 [email or web address]) Nutritional Asmnt/Malnutrition Patient General Information Nutritional Screening High Risk Diagnosis gastroenteritis, anemia, FTT Pertinent Medical Hx/Surgical Hx HTN, DM, CHF, CABG, hernia, bowel obstruction Subjective Information Per H&P, pt had vomiting and diarrhea for 2 weeks before admitted. Pt is deaf noted. Family at bed side at time of visit. Per family, pt has no N /V today. Current Diet [facility]/ [facility] Pertinent Medications novolog, flagyl, zofran Pertinent Labs 03/04 Cl 108, glucose 85, POC 89 -113 03/05 POC 75-123 Nutritional Hx/Data Height 1.57 m Height (Calculated Centimeters) 157.5 Current Weight (lbs) 73.936 kg Weight (Calculated Kilograms) 73.9 Weight (Calculated Grams) 69394.6 [place] Body Weight 118 Body Mass Index (BMI) 29.8 Weight Status Overweight GI Symptoms GI Symptoms None Last BM not indicated Difficult in: None Usual diet at home per family pt eats regular textured diet and tolerates well Skin Integrity/Comment: 2+ pitting edema to right and left lower extremities Estimated Nutritional Goals BEE in Kcals: Adj wt of IBW Calories/Kcals/Kg 25-30 Kcals Calculated 2325-0333 Protein: Adj wt of IBW Protein g/k-1.2 Protein Calculated 58-70 Fluid: ml 1450-1740ml (1ml/kcal) Nutritional Problem No current Nutrition Prob Problem N/A Malnutrition Alert Is there a minimum of two criteria No selected? Query Text:Check all the applicable criteria. A minimum of two criteria are recommended for diagnosis of either severe or non-severe malnutrition. Malnutrition Related to Morbid Obesity Malnutrition related to morbid obesity No Intervention/Recommendation Comments 1. Continue with CCHO-60gm diet as ordered. If glucose continue WNL, recomend regular diet for liberalization. 2. Monitor PO intake, wt, labs and skin integrity 3. F/U as high risk in 2-3 days, 03/07-03/08 Expected Outcomes/Goals Expected Outcomes/Goals 1. PO intake to meet at least 75% of nutritional needs. 2. Wt stability, skin to remain intact, labs to approach WNL.
== END 2018-03-10 20:35 | DRG 336 ==
LOC: ER 13:24 → MSI 16:34
PROVIDERS: ADMIT Internal Medicine; ATTEND Internal Medicine
PROC: 3E0M05Z Introduction of Adhesion Barrier into Peritoneal Cavity, Open Approach (ICD-10-PCS; principal; 2018-03-08)
PROC: 0WQF0ZZ Repair Abdominal Wall, Open Approach (ICD-10-PCS; 2018-03-08)
PROC: 0DNW0ZZ Release Peritoneum, Open Approach (ICD-10-PCS; 2018-03-08)
DX: K43.6 Other and unspecified ventral hernia with obstruction, without gangrene (principal); K56.51 Intestinal adhesions [bands], with partial obstruction; K52.9 Noninfective gastroenteritis and colitis, unspecified; D64.9 Anemia, unspecified; H91.90 Unspecified hearing loss, unspecified ear; I50.9 Heart failure, unspecified; Z95.1 Presence of aortocoronary bypass graft; H54.8 Legal blindness, as defined in USA; I11.0 Hypertensive heart disease with heart failure; I25.10 Atherosclerotic heart disease of native coronary artery without angina pectoris; E11.9 Type 2 diabetes mellitus without complications; Z83.3 Family history of diabetes mellitus; Z82.49 Family history of ischemic heart disease and other diseases of the circulatory system; Z87.891 Personal history of nicotine dependence
CPT/HCPCS: 36415-UA; 71045-TC; 80048-TC; 80053-TC; 80061-TC; 81001-TC; 82948-90; 83735-TC; 83880-TC; 84443-TC; 84484-TC; 85025-TC; 85610-TC; 87046-90; 90799; 93005; 93970-TC-50; 96372; J1815; J1885; J1940; J2405; J2704; J2710; J3010; J3490; J7042; X5716; X6026; X6258; Z7610